=== PATIENT | male | born 1955 | race Caucasian/White ===

== ENCOUNTER → 2018-06-12 14:55 | Outpatient (CLI) | payer OTHER, SELFPAY ==
--- NOTE | 2018-06-12 14:58 | DI.MRI.S_ITS ---
PROCEDURE: MR LUMBAR SPINE WO CON INDICATIONS: LUMBAR STENOSIS,LUMBAR REGION TECHNIQUE: Noncontrast sagittal T1 spin echo and T2 fast echo, sagittal STIR, axial T1 and T2 fast spin echo through the lumbar spine. In cases with scoliosis, additional coronal T2 fast spin echo may be performed. COMPARISON: None. FINDINGS: Image quality: Excellent. Alignment and Curvature: There is normal bony alignment. Bone Marrow: Marrow is of normal overall signal. No acute vertebral body compression fractures. Spinal Cord: Conus medullaris terminates at the T12 level. Visualized cord demonstrates normal signal and size. Paraspinous Soft Tissues: No paravertebral masses. L1-L2: Normal appearance. L2-L3: Mild disc bulge. Mild facet ligamentum flavum hypertrophy. No canal stenosis. No foraminal narrowing. L3-L4: Mild disc desiccation and height loss. Broad-based disc bulge. Mild facet ligamentum flavum hypertrophy. No canal stenosis. No foraminal stenosis. L4-L5: Severe disc desiccation and height loss. Reactive endplate changes. Moderate facet ligamentum flavum hypertrophy. Mild canal stenosis. Mild right and moderate left foraminal stenosis. L5-S1: Severe disc desiccation and height loss. No canal stenosis. Moderate bilateral foraminal stenosis. IMPRESSION: 1. This desiccation and height loss most severe at L4-5 and L5-S1. 2. Mild L4-L5 canal stenosis. No other canal stenosis of the lumbar spine. 3. Moderate left L4-L5 foraminal stenosis and moderate bilateral L5-S1 foraminal stenosis. Dictated by: Alie Payne M.D. on 06/12/2018 at 15:53 Approved by: Alie Payne M.D. on 06/12/2018 at 15:57
== END ==
PROVIDERS: Visit Provider Family Medicine
DX: M48.061 Spinal stenosis, lumbar region without neurogenic claudication (principal); M51.86 Other intervertebral disc disorders, lumbar region; M51.87 Other intervertebral disc disorders, lumbosacral region
CPT/HCPCS: 72148

== ENCOUNTER → 2018-08-14 17:37 | Outpatient (CLI) | payer OTHER, SELFPAY ==
--- NOTE | 2018-08-14 17:40 | DI.MRI.S_ITS ---
PROCEDURE: MR WRIST RT WO CON INDICATIONS: CRUSHING INJURY OF RIGHT HAND TECHNIQUE: Noncontrast coronal proton density fast spin echo and T2 fast spin echo with fat saturation; coronal 3-D gradient echo, axial T1 spin echo and T2 fast spin echo with fat saturation, sagittal T1 spin echo through the wrist. COMPARISON: [facility], CR, XR WRIST 3+ VIEWS RIGHT, 08/02/2018, 9:09. [facility] Outside Film, CT, CT HAND RIGHT WITHOUT CONTRAST, 06/23/2018, 9:11. FINDINGS: Image quality: Slightly degraded due to motion.. Bones and cartilage: The carpal bones are normally aligned. There is marrow edema involving fourth metacarpal shaft and fourth metacarpal head. No definite discrete fracture line is noted. Cortical irregularity involving dorsal aspect of second metacarpal base is seen, suspicious for a subacute to old fracture. No significant adjacent marrow edema is seen. No other fracture or dislocation is noted. Mild soft tissue swelling around fourth metacarpal shaft is seen. Intraosseous cysts are noted in proximal scaphoid. Small intraosseous cyst is also seen in capitate. No evidence for avascular necrosis. Overlying cartilage surfaces appear normal. Carpal ligaments: The scapholunate and lunotriquetral ligaments appear intact. In the absence of intra-articular contrast, the extrinsic carpal ligaments are not well identified. On sagittal images, the pisohamate ligament appears intact. Triangular fibrocartilage complex: The triangular fibrocartilage appears intact. The adjacent meniscal homolog appears normal in the absence of intra-articular contrast. The extensor carpi ulnaris tendon is normal in location and morphology. Tendons and soft tissues: The carpal tunnel structures appear normal, including the median nerve. The ulnar nerve appears normal within Guyon's canal. All six extensor tendon compartments demonstrate normal morphology, without pathologic tendon sheath fluid. No soft tissue ganglion cysts. IMPRESSION: 1. Mild marrow edema involving fourth metacarpal shaft and metacarpal head with surrounding soft tissue swelling. No definite fracture or dislocation is seen. Finding is suggestive of bony contusion and adjacent soft tissue contusion. 2. Cortical irregularity involving dorsal aspect of fourth metacarpal base, which was also noted on previous CT study and is suspicious for a subacute nondisplaced fracture in this area. Clinical correlation and followup is recommended. 3. Wrist tendons and ligaments are grossly intact. Triangular fibrocartilage complex is intact. Dictated by: Yogi Mcgee M.D. on 08/15/2018 at 13:50 Approved by: Yogi Mcgee M.D. on 08/15/2018 at 14:22
== END ==
PROVIDERS: Visit Provider Physician Assistant Surgical
DX: S67.21XA Crushing injury of right hand, initial encounter (principal); R60.9 Edema, unspecified
CPT/HCPCS: 73221

== ENCOUNTER 2019-01-28 12:33 | Emergency (ER) | payer OTHER, SELFPAY ==
[2019-01-28 12:46] VITALS: BP 132/81; PULSE 82; RESP 18; TEMP 36.8; O2SAT 98; BMI 24.2
[2019-01-28] MEDS: CYCLOBENZAPRINE 10 MG TABLET PO (13:22)
[2019-01-28] MEDS: predniSONE 20 MG TABLET 40 MG PO (13:22)
[2019-01-28] MEDS: KETOROLAC 60 MG/2 ML VIAL IM (13:22)
[2019-01-28 13:34] VITALS: BP 110/77; PULSE 58; RESP 16; O2SAT 99
--- NOTE | 2019-01-28 14:14 | DI.RAD.S_ITS ---
PROCEDURE: XR LUMBAR SPINE 2-3V INDICATIONS: Low back pain, hx of ruptured disc in L3-S1 TECHNIQUE: 3 views of the lumbar spine were acquired. COMPARISON: [facility], MR, MR LUMBAR SPINE WO CON, 06/12/2018, 15:04. FINDINGS: Bones: 5 [id number] vertebrae are present. There is a minimal retrolisthesis at L5-S1 which appears similar to the prior study. No vertebral body compression fractures. There is moderate to severe disc space narrowing at L4-L5 and L5-S1 with endplate sclerosis and osteophytosis. There is minimal disc space narrowing at L3-L4. Mild facet arthropathy also noted at L5-S1. Soft tissues: Overlying bowel gas pattern is normal. No suspicious soft tissue calcifications. IMPRESSION: 1. Degenerative changes in the lower lumbar spine including moderate to severe degenerative disc disease at L4-L5 and L5-S1. Mild facet arthropathy also noted at L5-S1. Dictated by: Mj Aguilera M.D. on 01/28/2019 at 13:59 Approved by: Mj Aguilera M.D. on 01/28/2019 at 14:02
--- NOTE | 2019-01-28 14:35 | ED.BACK ---
HPI - Back Pain/Injury <LIV Camara - Last Filed: 01/29/19 00:25> General Chief Complaint: Back Pain/Injury Stated Complaint: severe low back pain x2 days Time Seen by Provider: 01/28/19 12:42 Source: patient Limitations: no limitations History of Present Illness HPI Narrative: This is a pleasant 64-year-old gentleman, nonsmoker, who presents with significant other with chief complain of nontraumatic low back pain since Tuesday. Patient reports he had trimmed trees and work in the yard on Tuesday without much trouble. He noticed sudden onset of severe low back pain when he stood up from a chair and again he felt another episode of severe back pain when he was brushing his teeth. Patient reports any movements that make his body on even causes severe pain which radiates down to bilateral thigh. Patient reports he has a history of disc rupture from L4-S1 in 1991 which was managed with conservative therapy. Patient denies any urinary symptoms, saddle anesthesia, incontinence for bladder or bowel, rash on his back, fever/chills, nausea or vomiting. Patient has been taking Aleve, Tylenol, old prescription of oxycodone, warm pack but pain has been managed well at home. He has been taking very slow to move and has been resting most of yesterday. Related Data Previous Rx's Medication Instructions Recorded diazepam [Valium] 5 - 10 mg PO BID-TID PRN #14 tab 01/28/19 lidocaine 1 patch TOP DAILY #15 each 01/28/19 prednisone 40 mg PO DAILY 4 Days #8 tab 01/28/19 Allergies Allergy/AdvReac Type Severity Reaction Status Date / Time No Known Drug Allergies Allergy Verified 01/28/19 12:48 Review of Systems <LIV Camara - Last Filed: 01/29/19 00:25> Review of Systems ROS Unobtainable: All systems reviewed & are unremarkable except as noted in HPI and below PFSH <LIV Camara - Last Filed: 01/29/19 00:25> Medical History Back pain (Acute) Surgical History History of knee surgery (Acute) History of shoulder surgery (Acute) Social History Smoking Status: Never smoker Social History Smoking Status: Never smoker Exam <LIV Camara - Last Filed: 01/29/19 00:25> Narrative Exam Narrative: General appearance: well developed, well nourished, in no acute distress. Head: normocephalic, atraumatic, no scalp lesions, non-tender. Eye: pupil equal, round. EOMI. Nose: nares patent. Oral: mucosa moist. Neck/Thyroid: neck supple, full range of motion, no visible masses. Skin: no suspicious rashes, lesions over visible areas. Warm and dry. Heart: no clubbing, no cyanosis, no edema. Lungs: Breathing even and unlabored. No stridor. No accessory muscles used. Chest: normal shape and expansion. Abdomen: non-obese, non-distended. Neurologic: alert and oriented. Cognitive exam, [employer] and PNS grossly intact on informal exam. Psych: good eye contact, normal affect. Initial Vital Signs Initial Vital Signs: Vital Signs Temperature 98.3 F 01/28/19 12:46 Pulse Rate 82 01/28/19 12:46 Respiratory Rate 18 01/28/19 12:46 Blood Pressure 132/81 01/28/19 12:46 Pulse Oximetry 98 01/28/19 12:46 Back/Spine/Pelvis Back: normal to inspection, back tenderness, No CVA tenderness and No erythema Thoracic/Lumbar Spine: thoracic and lumbar spine normal to inspection, straight leg raise negative bilaterally, bend over test abnormal, pain with thoraco-lumbar ROM, paraspinal tenderness and tilt present <Yamilex Abreu DO - Last Filed: 01/29/19 07:47> Initial Vital Signs Initial Vital Signs: Vital Signs Temperature 98.3 F 01/28/19 12:46 Pulse Rate 82 01/28/19 12:46 Respiratory Rate 18 01/28/19 12:46 Blood Pressure 132/81 01/28/19 12:46 Pulse Oximetry 98 01/28/19 12:46 Course <LIV Camara - Last Filed: 01/29/19 00:25> Orders Ordered: Discontinued Medications Cyclobenzaprine HCl (Flexeril) 10 mg PO NOW ONE Stop: 01/28/19 13:03 Last Admin: 01/28/19 13:22 Dose: 10 mg Documented by: ALEXY Ketorolac Tromethamine (Toradol) 60 mg IM NOW ONE Stop: 01/28/19 13:03 Last Admin: 01/28/19 13:22 Dose: 60 mg Documented by: ALEXY Lidocaine (Lidoderm) 1 each TOP NOW ONE Stop: 01/28/19 14:35 Last Admin: 01/28/19 15:15 Dose: 1 each Documented by: YULI Prednisone (Deltasone) 40 mg PO NOW ONE Stop: 01/28/19 13:03 Last Admin: 01/28/19 13:22 Dose: 40 mg Documented by: ALEXY Vital Signs Vital signs: Vital Signs - 8 hr 01/28/19 12:46 01/28/19 13:34 Temperature 98.3 F Pulse Rate 82 58 L Respiratory Rate 18 16 Blood Pressure 132/81 Blood Pressure [Right Arm] 110/77 Pulse Oximetry 98 99 <Yamilex Abreu DO - Last Filed: 01/29/19 07:47> Orders Ordered: Discontinued Medications Cyclobenzaprine HCl (Flexeril) 10 mg PO NOW ONE Stop: 01/28/19 13:03 Last Admin: 01/28/19 13:22 Dose: 10 mg Documented by: ALEXY Ketorolac Tromethamine (Toradol) 60 mg IM NOW ONE Stop: 01/28/19 13:03 Last Admin: 01/28/19 13:22 Dose: 60 mg Documented by: ALEXY Lidocaine (Lidoderm) 1 each TOP NOW ONE Stop: 01/28/19 14:35 Last Admin: 01/28/19 15:15 Dose: 1 each Documented by: YULI Prednisone (Deltasone) 40 mg PO NOW ONE Stop: 01/28/19 13:03 Last Admin: 01/28/19 13:22 Dose: 40 mg Documented by: ALEXY Vital Signs Vital signs: Vital Signs - 8 hr 01/28/19 12:46 01/28/19 13:34 Temperature 98.3 F Pulse Rate 82 58 L Respiratory Rate 18 16 Blood Pressure 132/81 Blood Pressure [Right Arm] 110/77 Pulse Oximetry 98 99 MDM - Back Pain/Injury <LIV Camara - Last Filed: 01/29/19 00:25> Differential Diagnosis Differential diagnosis: Likely lumbar radiculopathy, sciatica, strain of lumbar region, thoracic back pain and other (Lumbar pain) Medical Records Attestation: I reviewed the patient's medical records. Lab Data Labs: Urine Dip Bedside Urine Glucose Negative Bedside Urine Bilirubin - Negative Bedside Urine Ketone - Negative Urine Specific [place] 1.020 Bedside Urine Occult Blood - Negative Bedside Urine pH 6.0 Bedside Urine Protein +/- 15 Bedside Urine Urobilinogen +/- 1mg Bedside Urine Nitrite - Negative Bedside Urine Leukocytes - Negative Esterase Imaging Data XR-Lumbar: Radiologist's impression: [address] [address] XRay Report Signed Patient: Vinicio Vega WMR#: [id number] : 6Acct:[id number] Age/Sex: 64 / MDate of Service: 01/28/19 Loc: ED Accession Number: [id number] Procedure: XR lumbar spine 2-3V Ordering Provider: Santiago Sagastume PROCEDURE: XR LUMBAR SPINE 2-3V INDICATIONS: Low back pain, hx of ruptured disc in L3-S1 TECHNIQUE: 3 views of the lumbar spine were acquired. COMPARISON: [facility], MR, MR LUMBAR SPINE WO CON, 06/12/2018, 15:04. FINDINGS: Bones: 5 [id number] vertebrae are present. There is a minimal retrolisthesis at L5-S1 which appears similar to the prior study. No vertebral body compression fractures. There is moderate to severe disc space narrowing at L4-L5 and L5-S1 with endplate sclerosis and osteophytosis. There is minimal disc space narrowing at L3-L4. Mild facet arthropathy also noted at L5-S1. Soft tissues: Overlying bowel gas pattern is normal. No suspicious soft tissue calcifications. IMPRESSION: 1. Degenerative changes in the lower lumbar spine including moderate to severe degenerative disc disease at L4-L5 and L5-S1. Mild facet arthropathy also noted at L5-S1. Dictated by: Mj Aguilera M.D. on 01/28/2019 at 13:59 Approved by: Mj Aguilera M.D. on 01/28/2019 at 14:02 [facility] Narrative Medical decision making narrative: This is a 64-year-old gentleman who presents to ED with 3 days of nontraumatic severe low back pain radiating to bilateral anterior thigh after he had done yard working and tree trimming most of the day. Patient does not have constitutional symptoms or rash on his back. Urine did not appears to be infected or showed blood to be considered as kidney stone. The patient denied saddle anesthesia, incontinence problem, or urinary symptoms. Patient has history of L4-5 disc rupture with 75% nerve loss on right side of lower leg and has been treated with conservative therapy. Patient find even little movements causes severe pain. Patient was treated with multiple medications for his pain with minimal improvement and patient was evaluated several times. Lumbar x-ray was obtained without acute findings. Patient was able to ambulate and slow and stable gait to bathroom. Patient advised to rest his back and several Rx have provided for home use and to use warm/cool pack as needed. Strict return precautions were discussed with the patient and advised to follow with his primary care physician next week. No further questions were expressed and patient and spouse agree with treatment plan. <Yamilex Abreu, DO - Last Filed: 01/29/19 07:47> Lab Data Labs: Urine Dip Bedside Urine Glucose Negative Bedside Urine Bilirubin - Negative Bedside Urine Ketone - Negative Urine Specific [place] 1.020 Bedside Urine Occult Blood - Negative Bedside Urine pH 6.0 Bedside Urine Protein +/- 15 Bedside Urine Urobilinogen +/- 1mg Bedside Urine Nitrite - Negative Bedside Urine Leukocytes - Negative Esterase Discharge Plan Departure Patient Disposition: Home Clinical Impression: Acute low back pain with bilateral sciatica Qualifiers: Back pain laterality: bilateral Qualified Code(s): M54.42 - Lumbago with sciatica, left side Discharge Date/Time: 01/28/19 16:32 Instructions: DI for Low Back Pain Activity Restrictions/Additional Instructions: You have been diagnosed with [low back pain with sciatica to bilateral thighs. Today does not show compression fractures. There is moderate severe disc space narrowing in L4-L5 and minimum disc space narrowing at L3-L4 along degenerative disc disease. Your urine does not show infection or blood tests indicating kidney stone]. What to do: *Take your medications as directed. Valium is muscle relaxant and this causes drowsiness. Please do not drive, drink alcohol, or operate heavy equipments. Lidocaine stays on for 12 hours and off for 12 hours and helps with back pain. Prednisone is once a day for next 4 days to decrease back inflammation. This can cause increase in blood sugar, stomach irritation, sleep difficulty. Please continue to take Tylenol and or Motrin/Aleve products around the clock. You can take Tylenol upto 4000 mg/24 hr period. Please take food with prednisone and Aleve. You can continue to take narcotic medication you have sporadically for severe pain. Please rest your back for acute pain, you can use warm/cool pack on her back as well. *Follow up with your primary care provider in 2-3 days, call for an appointment. Let them know you were seen in the ED and that we asked you to be seen in follow up. *Return to ED if you have any new, worsening, or concerning symptoms, such as [chest pain, breathing difficulty, unable to tolerate fluids, weakness to bilateral legs, numbness to groin, bladder/stool incontinence, rash, or any acute concerns]. Prescriptions: New diazepam [Valium] 5 mg tablet 5 - 10 mg PO BID-TID PRN (Reason: muscle spasm) Qty: 14 RF: 0 lidocaine 5 % adhesive patch,medicated 1 patch TOP DAILY Qty: 15 RF: 0 prednisone 20 mg tablet 40 mg PO DAILY 4 Days Qty: 8 RF: 0 Referrals: Sagrario Vargas DO [Primary Care Provider] -
[2019-01-28 14:40] VITALS: BP 126/63; PULSE 58; RESP 14; O2SAT 99
[2019-01-28] MEDS: LIDOCAINE PATCH 1 EACH ADH..PATCH TOP (15:15)
[2019-01-28 16:07] VITALS: BP 95/38; PULSE 53; O2SAT 99
== END 2019-01-28 16:32 | disposition home or self-care (01) ==
PROVIDERS: Emergency Provider Nurse Practitioner Family; PCP Family Medicine
DX: M54.42 Lumbago with sciatica, left side (principal)
CPT/HCPCS: 72100; 81003; 96372; 99283; 99284; J1885

== ENCOUNTER → 2019-02-14 06:46 | Outpatient (CLI) | payer OTHER, SELFPAY ==
--- NOTE | 2019-02-14 | DI.MRI.S_ITS ---
PROCEDURE: MR LUMBAR SPINE WO CON INDICATIONS: Lumbago with sciatica, unspecified side TECHNIQUE: Noncontrast sagittal T1 spin echo and T2 fast echo, sagittal STIR, axial T1 and T2 fast spin echo through the lumbar spine. In cases with scoliosis, additional coronal T2 fast spin echo may be performed. COMPARISON: [facility], CR, XR LUMBAR SPINE 2-3V, 01/28/2019, 14:42. FINDINGS: Image quality: Excellent. Alignment and Curvature: There is normal bony alignment. Bone Marrow: Reactive endplate change is noted adjacent to the L4-L5 and L5-S1 discs. No acute vertebral body compression fractures. Spinal Cord: Conus medullaris terminates at the L1 level. Visualized cord demonstrates normal signal and size. Paraspinous Soft Tissues: No paravertebral masses. L1-L2: Normal appearance. L2-L3: Normal appearance. L3-L4: Loss of disc signal. Mild diffuse disc bulge. Small central/left central disc protrusion. Mild narrowing of the central canal. Mild bilateral neural foraminal narrowing. No neural compression. L4-L5: Loss of disc signal and height. Mild to moderate diffuse disc bulge. Mild bilateral facet hypertrophy. Mild ligamentum flavum hypertrophy. Mild to moderate narrowing of the central canal. Moderate right and severe left neural foraminal narrowing with compression of the exiting left L4 nerve root. L5-S1: Loss of disc signal and height. Mild, diffuse disc bulge. Mild bilateral facet hypertrophy. No central stenosis. Moderate bilateral neural foraminal narrowing. No neural compression. IMPRESSION: 1. Multilevel degenerative disc disease. 2. Multilevel facet arthropathy. 3. Mild to moderate L4-L5 central canal narrowing. Mild L3-L4 central canal narrowing. 4. Moderate right and severe left L4-L5 neuroforaminal narrowing. Moderate bilateral L5-S1 neural foraminal narrowing. Mild bilateral L3-L4 neural foraminal narrowing. 5. Compression of the exiting left L4 nerve root secondary to left L4-L5 neural foraminal narrowing. Dictated by: Christina Martínez MD, PhD on 02/14/2019 at 13:03 Approved by: Christina Martínez MD, PhD on 02/14/2019 at 13:08
== END ==
PROVIDERS: PCP Family Medicine; Visit Provider Family Medicine
DX: M51.16 Intervertebral disc disorders with radiculopathy, lumbar region (principal); M51.17 Intervertebral disc disorders with radiculopathy, lumbosacral region; M47.816 Spondylosis without myelopathy or radiculopathy, lumbar region; M47.817 Spondylosis without myelopathy or radiculopathy, lumbosacral region; M48.061 Spinal stenosis, lumbar region without neurogenic claudication; M48.07 Spinal stenosis, lumbosacral region
CPT/HCPCS: 72148

== ENCOUNTER 2019-06-22 13:00 | Outpatient (RCR) | payer OTHER, SELFPAY ==
--- NOTE | 2019-05-31 16:21 | PT.OIE ---
Current Diagnoses Bunion of right foot (05/31/19) Unspecified acquired deformity of unspecified lower leg (05/31/19) Unspecified injury of right foot, initial encounter (05/31/19) Past Medical History (Last Reviewed 01/28/19 @ 14:50 by LIV Camara) Back pain (Acute) Past Surgical History (Last Reviewed 01/28/19 @ 14:50 by LIV Camara) History of knee surgery (Acute) History of shoulder surgery (Acute) Visit Care Team Role Provider Type Sagrario Vargas DO Attending Provider Non-Staff Primary Care Provider Specialty: Medical Address: [address] [place] [address], [facility] Email: Physical Therapy Initial Evaluation PT-OP-A Visit Information Start: 05/31/19 08:15 Freq: Status: Active Protocol: Document 05/31/19 11:15 HH (Rec: 05/31/19 12:21 [email or web address]) Out-Patient Physical Therapy Visit Information Visit Information Visit Type Initial Evaluation Visit Start Time 11:15 Visit Stop Time 12:05 Total Visit Minutes 50 Visit Number 05/25 Number of PODIATRIC SURGEON Visits 0 Evaluation Information Evaluation Date 05/31/19 PT-OP-B Current Condition Start: 05/31/19 08:15 Freq: Status: Active Protocol: Document 05/31/19 11:15 HH (Rec: 05/31/19 12:21 [email or web address]) Current Condition History of Current Condition Onset Date 03/27/19 Current Complaints L foot and big toe pain, difficulty in walking and decreased balance. History of Current Condition Pt is a 64 yo male 8 weeks status post arthodesis first tarsometatarsal joint at R foot; modified Child bunionectomy R foot; Osteotomy at 2nd and 3rd metatarsal; Plantar plate repair second metarsal phalangeal joint and hammertoe procedure, which was done at [facility] on Mar 27, 2019. Rehab protocol includes gentle progressive ROM and strengthening program; modalities to reduce inflammation. Pt is WBAT now and no longer need to wear boot since May 09, 2019. His surgeon also told him not to perform any impactful activities until 12 weeks postop. Pt reports limitation with foot and big toe mobility at this point and limits his walking ability up to 1 mile/day only. 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 Pt wants to be able to walk 500 miles this / next summer. Pt also reports his nerve conduction test on RLE is only 75% due to herniated disc which possibly caused his limited sensation to R LE. Pt has a long history of bunion and he noticed he tends to push off through his medial side of the big toe prior to surgery. In addition, pt states he also has radiating L hip pain to posterior thigh after proloned sitting or sitting at a low level chair, but tends to relieve with movement or reduced seated hip flexion angle. Prior Treatments and Tests See post op x-ray in chart. Future Testing and Treatments Planned Next appt with surgeon 06/05/19 Treatment Goals Patient/Caregiver Goals 1. Able to improve his R big toe and ankle mobility 2. able to improve single leg balance 3. able to normalize his gait pattern 4. Able to jog 5 miles + walk 3-5 miles a day PT-OP-C Subjective Start: 05/31/19 08:15 Freq: Status: Active Protocol: Document 05/31/19 11:15 HH (Rec: 05/31/19 16:21 [email or web address]) OP-PT Subjective Patient Comments Patient Comments im frustrated with my current activity level since i cant walk as much as before. Patient Questionnaires Foot & Ankle Ability Measure- ADL and Sports FAAM-ADL Score 74 FAAM-ADL Impairment 1 to 19% Impaired (Score 67-83 ) FAAM-Sport Score 15 FAAM-Sport Impairment 40 to 59% Impaired (Score 12- 18) Lower Extremity Functional Scale LEFS Score 65 LEFS Impairment 1 to 19% Impaired (Score 63-79 ) PT-OP-G Mobility & Gait Start: 05/31/19 08:15 Freq: Status: Active Protocol: Document 05/31/19 11:15 HH (Rec: 05/31/19 16:21 [email or web address]) OP Gait Assessment Gait Gait Assistance Required: Independent Gait Deviations General Gait Pattern Antalgic,Decreased Stride Length,Decreased Feet Clearance Factors Limiting Gait Function Factors Limiting Gait Function Limited Range of Motion,Pain, Poor Balance Comments Gait Comments R foot turned out during gait with limited forefoot push off at preswing. Pt has limited R heel strike and toe extension for initial contact and terminal stance PT-OP-J Posture/Palpation/Skin Start: 05/31/19 08:15 Freq: Status: Active Protocol: Document 05/31/19 11:15 HH (Rec: 05/31/19 16:21 [email or web address]) Posture Evaluation Position Standing Evaluation View Anterior Ankle/Foot Posture (R) Pronated,(R) Forefoot Abducted Foot Arch (L) Medium Arch,(R) Low Arch PT-OP-K Range of Motion Start: 05/31/19 08:15 Freq: Status: Active Protocol: Document 05/31/19 11:15 HH (Rec: 05/31/19 16:21 [email or web address]) Lumbar Spine Range of Motion Lumbar Spine Active Percentage Comments able to reach metatarsal for toe touch test Ankle and Foot Goniometric Range of Motion Ankle and Foot Right Active Ankle/Foot ROM WFL No Testing Position Supine Dorsiflexion with Knee Extended 0 Plantarflexion 55 Inversion 15 Eversion 8 Left Active Ankle/Foot ROM WFL Yes Testing Position Supine Dorsiflexion with Knee Extended 5 Plantarflexion 75 Inversion 20 Eversion 14 Toe Range of Motion Toe Right Great Toe Toe ROM WFL No MTP Flexion Active (degrees) 5 MTP Extension Active (degrees) 15 Left Great Toe Toe ROM WFL Yes MTP Flexion Active (degrees) 17 MTP Extension Active (degrees) 55 PT-OP-M Strength Start: 05/31/19 08:15 Freq: Status: Active Protocol: Document 05/31/19 11:15 HH (Rec: 05/31/19 16:21 [email or web address]) Knee Strength Knee Manual Muscle Testing Right Flexion (S2) 5 Normal Extension (L3) 5 Normal Left Flexion (S2) 5 Normal Extension (L3) 5 Normal Ankle/Foot Strength Ankle and Foot Manual Muscle Testing Right Dorsiflexion (L4) 4- Good- Plantarflexion (S1) 4 Good Inversion 4- Good- Eversion (S1) 4- Good- Reason Not Measured Pain Left Dorsiflexion (L4) 5 Normal Plantarflexion (S1) 5 Normal Inversion 5 Normal Eversion (S1) 5 Normal Toe Strength Toe Manual Muscle Testing Right Great Toe Flexion 3+ Fair+ Extension 3+ Fair+ Reason Not Measured Pain Left Great Toe Flexion 5 Normal Extension 5 Normal PT-OP-Q Treatments Start: 05/31/19 08:15 Freq: Status: Active Protocol: Document 05/31/19 11:15 HH (Rec: 05/31/19 16:21 HH [email or web address]) Therapeutic Exercises Supine Exercises calf stretch Supine Exercise Name with belt to assist Side right Comments for home stretch calf release Supine Exercise Name with tennis ball/ use of rolling pin Side right Comments for home self massage Sitting Exercises short foot ex Side right Equipment Used towel Comments for HEP Manual Therapy Treatment Soft Tissue Mobilization scar mob Mobilization Type Cross-Friction Intensity/Depth Superficial Body Position Sitting Comments educated pt to cross friction self scar mob around incision site with minimal pressure. PT-OP-T Assessment and Plan Start: 05/31/19 08:15 Freq: Status: Active Protocol: Document 05/31/19 11:15 HH (Rec: 05/31/19 16:21 HH [email or web address]) Physical Therapy Assessment Goals gait Impairment Pt amb with a R foot shirt turner Education Technician Goal (LTG) Pt will increase his overall R foot ROM by 10 degrees to improve his gait mechanics with proper heel strike and toes off on R side. LTG Duration 12 weeks Return to sports Impairment unable to jog/ hike at this point Short Term Goal (STG) pt will be able to light jog 2 miles without discomfort of R foot STG Duration 6 weeks Usp Goal (LTG) Pt will be able to light jog 3 miles a day (speed= 4MPH) without discomfrot of R foot. LTG Duration 12 weeks Activity tolerance Impairment Pt unable to paulie >1 mile walk /day at this point Short Term Goal (STG) Pt will be able to amb 1 mile/ day without any discomfort at R foot STG Duration 6 weeks Usp Goal (LTG) Pt will be able to amb 3-5 miles/day without any discomfort at R foot. LTG Duration 12 weeks LEFS Impairment pt scores 65 for LEFS Short Term Goal (STG) Pt will score >70 on LEFS to improve his quality of life STG Duration 6 weeks Education Technician Goal (LTG) Pt will score >75 on LEFS to improve his quality of life in order to return to his daily joggin routine. LTG Duration 12 weeks Assessment Summary Assessment Pt is a 64yo male 8 weeks s/p arthrodesis first tarsometatarsal joint right foot; modified Child bunionectomy right foot; Osteotomy at second and third metatarsal and plantar plate repair second metatarsal phalangeal joint and hammertoe procedure. Pt still has edema at both dorsal and plantar aspect of the forefoot, along with limited 1st ray and big toe joint mobility. Pt currently amb with R foot shirt turner and lack of heel strike and toe push off at preswing d /t limited mobility and pain. Educated pt to use tennis ball / rolling ball to improve R calf soft tissue mobility and added short foot ex to improve motor control. 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 Pt will be a good candidate for skilled therapy to improve his foot and toe mobility, strength and gait mechanics to prevent further injury / reoccurance of bunion . Physical Therapy Plan Frequency and Duration Frequency of Treatment 2x/Week Duration of Treatment 12 weeks Plan of Care Start Date 05/31/19 Plan of Care End Date 08/29/19 Therapeutic Interventions Therapeutic Interventions Balance Training,Coordination Training,Gait Training,Home Exercise Program,Joint Mobilizations,Manual Therapy, Neuromuscular Re-education, Patient/Caregiver Education, Self-Care/Home Management,Soft Tissue Mobilization,Taping, Therapeutic Activities, Therapeutic Exercises Modalities Cold Pack/Ice Massage,Electric Stimulation,Hot Packs, Infrared Therapy,Ultrasound Next Visit Focus/Plan Next Note Type Treatment Note Next Visit Plan measure edema Single leg balance start manual therapy for swelling managment PROM, calf stretch and STM short foot ex gait training with heel strike
--- NOTE | 2019-05-31 16:22 | PT.OPPOC ---
Physical, Occupational & Speech Therapy At [facility] Current Diagnoses Bunion of right foot (05/31/19) Unspecified acquired deformity of unspecified lower leg (05/31/19) Unspecified injury of right foot, initial encounter (05/31/19) Visit Care Team Role Provider Type Sagrario Vargas DO Attending Provider Non-Staff Primary Care Provider Specialty: Medical Address: [address] [place] [address], [facility] Email: Plan Of Care PT-OP-T Assessment and Plan Start: 05/31/19 08:15 Freq: Status: Active Protocol: Document 05/31/19 11:15 HH (Rec: 05/31/19 16:21 HH [email or web address]) Physical Therapy Assessment Goals gait Impairment Pt amb with a R foot die turner Billet Worker Goal (LTG) Pt will increase his overall R foot ROM by 10 degrees to improve his gait mechanics with proper heel strike and toes off on R side. LTG Duration 12 weeks Return to sports Impairment unable to jog/ hike at this point Short Term Goal (STG) pt will be able to light jog 2 miles without discomfort of R foot STG Duration 6 weeks Billet Worker Goal (LTG) Pt will be able to light jog 3 miles a day (speed= 4MPH) without discomfrot of R foot. LTG Duration 12 weeks Activity tolerance Impairment Pt unable to paulie >1 mile walk /day at this point Short Term Goal (STG) Pt will be able to amb 1 mile/ day without any discomfort at R foot STG Duration 6 weeks Half-Way Goal (LTG) Pt will be able to amb 3-5 miles/day without any discomfort at R foot. LTG Duration 12 weeks LEFS Impairment pt scores 65 for LEFS Short Term Goal (STG) Pt will score >70 on LEFS to improve his quality of life STG Duration 6 weeks Half-Way Goal (LTG) Pt will score >75 on LEFS to improve his quality of life in order to return to his daily joggin routine. LTG Duration 12 weeks Assessment Summary Assessment Pt is a 64yo male 8 weeks s/p arthrodesis first tarsometatarsal joint right foot; modified Child bunionectomy right foot; Osteotomy at second and third metatarsal and plantar plate repair second metatarsal phalangeal joint and hammertoe procedure. Pt still has edema at both dorsal and plantar aspect of the forefoot, along with limited 1st ray and big toe joint mobility. Pt currently amb with R foot die turner and lack of heel strike and toe push off at preswing d /t limited mobility at pain. Educated pt to use tennis ball / rolling ball to improve R calf soft tissue mobility and added short foot ex to improve motor control. 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 Pt will be a good candidate for skilled therapy to improve his foot and toe mobility, strength and gait mechanics to prevent further injury / reoccurance of bunion . Physical Therapy Plan Frequency and Duration Frequency of Treatment 2x/Week Duration of Treatment 12 weeks Plan of Care Start Date 05/31/19 Plan of Care End Date 08/29/19 Therapeutic Interventions Therapeutic Interventions Balance Training,Coordination Training,Gait Training,Home Exercise Program,Joint Mobilizations,Manual Therapy, Neuromuscular Re-education, Patient/Caregiver Education, Self-Care/Home Management,Soft Tissue Mobilization,Taping, Therapeutic Activities, Therapeutic Exercises Modalities Cold Pack/Ice Massage,Electric Stimulation,Hot Packs, Infrared Therapy,Ultrasound Next Visit Focus/Plan Next Note Type Treatment Note Next Visit Plan measure edema Single leg balance start manual therapy for swelling managment PROM, calf stretch and STM short foot ex gait training with heel strike Plan of Care Dates Plan of Care Start Date 05/31/19 Plan of Care End Date 08/29/19 Electronically Signed by: Juan Howe PT 05/31/19 1523 Please Sign and Return: I have reviewed this Plan of Care and certify that the skilled therapy services above are required to meet the patient?s needs. Physician Signature Date Printed Name and Credentials Clinical Instructor Signature Printed Name and Credentials
--- NOTE | 2019-06-05 17:51 | PT.OTN ---
Current Diagnoses Bunion of right foot (06/05/19) Unspecified acquired deformity of unspecified lower leg (06/05/19) Unspecified injury of right foot, initial encounter (06/05/19) Physical Therapy Treatment Note PT-OP-A Visit Information Start: 05/31/19 08:15 Freq: Status: Active Protocol: Document 06/05/19 13:48 HH (Rec: 06/05/19 17:50 HH [id number]) Out-Patient Physical Therapy Visit Information Visit Information Visit Type Treatment Note Visit Start Time 13:48 Visit Stop Time 14:30 Total Visit Minutes 42 Visit Number 06/25 PT-OP-B Current Condition Start: 05/31/19 08:15 Freq: Status: Active Protocol: Document 05/31/19 11:15 HH (Rec: 05/31/19 12:21 HH [email or web address]) Current Condition History of Current Condition Onset Date 03/27/19 Current Complaints L foot and big toe pain, difficulty in walking and decreased balance. History of Current Condition Pt is a 64 yo male 8 weeks status post arthodesis first tarsometatarsal joint at R foot; modified Child bunionectomy R foot; Osteotomy at 2nd and 3rd metatarsal; Plantar plate repair second metarsal phalangeal joint and hammertoe procedure, which was done at [facility] on Mar 27, 2019. Rehab protocol includes gentle progressive ROM and strengthening program; modalities to reduce inflammation. Pt is WBAT now and no longer need to wear boot since May 09, 2019. His surgeon also told him not to perform any impactful activities until 12 weeks postop. Pt reports limitation with foot and big toe mobility at this point and limits his walking ability up to 1 mile/day only. 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 Pt wants to be able to walk 500 miles this / next summer. Pt also reports his nerve conduction test on RLE is only 75% due to herniated disc which possibly caused his limited sensation to R LE. Pt has a long history of bunion and he noticed he tends to push off through his medial side of the big toe prior to surgery. In addition, pt states he also has radiating L hip pain to posterior thigh after proloned sitting or sitting at a low level chair, but tends to relieve with movement or reduced seated hip flexion angle. Prior Treatments and Tests See post op x-ray in chart. Future Testing and Treatments Planned Next appt with surgeon 06/05/19 Treatment Goals Patient/Caregiver Goals 1. Able to improve his R big toe and ankle mobility 2. able to improve single leg balance 3. able to normalize his gait pattern 4. Able to jog 5 miles + walk 3-5 miles a day PT-OP-C Subjective Start: 05/31/19 08:15 Freq: Status: Active Protocol: Document 06/05/19 13:48 HH (Rec: 06/05/19 17:50 HH [id number]) OP-PT Subjective Patient Comments Patient Comments I did 1.6 miles walk today but i do feel my foot got tired and sosre. I am very aware what i am capable of. Patient Reported Progress Same PT-OP-G Mobility & Gait Start: 05/31/19 08:15 Freq: Status: Active Protocol: Document 05/31/19 11:15 HH (Rec: 05/31/19 16:21 [email or web address]) OP Gait Assessment Gait Gait Assistance Required: Independent Gait Deviations General Gait Pattern Antalgic,Decreased Stride Length,Decreased Feet Clearance Factors Limiting Gait Function Factors Limiting Gait Function Limited Range of Motion,Pain, Poor Balance Comments Gait Comments R foot turned out during gait with limited forefoot push off at preswing. Pt has limited R heel strike and toe extension for initial contact and terminal stance PT-OP-J Posture/Palpation/Skin Start: 05/31/19 08:15 Freq: Status: Active Protocol: Document 05/31/19 11:15 HH (Rec: 05/31/19 16:21 [email or web address]) Posture Evaluation Position Standing Evaluation View Anterior Ankle/Foot Posture (R) Pronated,(R) Forefoot Abducted Foot Arch (L) Medium Arch,(R) Low Arch PT-OP-K Range of Motion Start: 05/31/19 08:15 Freq: Status: Active Protocol: Document 05/31/19 11:15 HH (Rec: 05/31/19 16:21 [email or web address]) Lumbar Spine Range of Motion Lumbar Spine Active Percentage Comments able to reach metatarsal for toe touch test Ankle and Foot Goniometric Range of Motion Ankle and Foot Right Active Ankle/Foot ROM WFL No Testing Position Supine Dorsiflexion with Knee Extended 0 Plantarflexion 55 Inversion 15 Eversion 8 Left Active Ankle/Foot ROM WFL Yes Testing Position Supine Dorsiflexion with Knee Extended 5 Plantarflexion 75 Inversion 20 Eversion 14 Toe Range of Motion Toe Right Great Toe Toe ROM WFL No MTP Flexion Active (degrees) 5 MTP Extension Active (degrees) 15 Left Great Toe Toe ROM WFL Yes MTP Flexion Active (degrees) 17 MTP Extension Active (degrees) 55 PT-OP-M Strength Start: 05/31/19 08:15 Freq: Status: Active Protocol: Document 05/31/19 11:15 HH (Rec: 05/31/19 16:21 HH [email or web address]) Knee Strength Knee Manual Muscle Testing Right Flexion (S2) 5 Normal Extension (L3) 5 Normal Left Flexion (S2) 5 Normal Extension (L3) 5 Normal Ankle/Foot Strength Ankle and Foot Manual Muscle Testing Right Dorsiflexion (L4) 4- Good- Plantarflexion (S1) 4 Good Inversion 4- Good- Eversion (S1) 4- Good- Reason Not Measured Pain Left Dorsiflexion (L4) 5 Normal Plantarflexion (S1) 5 Normal Inversion 5 Normal Eversion (S1) 5 Normal Toe Strength Toe Manual Muscle Testing Right Great Toe Flexion 3+ Fair+ Extension 3+ Fair+ Reason Not Measured Pain Left Great Toe Flexion 5 Normal Extension 5 Normal PT-OP-Q Treatments Start: 05/31/19 08:15 Freq: Status: Active Protocol: Document 06/05/19 13:48 HH (Rec: 06/05/19 17:50 HH [id number]) Cardio Equipment Bicycle (Upright) Duration (Minutes) 7 Resistance 5 Therapeutic Exercises Supine Exercises supine bridge Supine Exercise Name on heels Comments for HEP calf stretch Supine Exercise Name with belt to assist Side right Comments for home stretch calf release Supine Exercise Name with tennis ball/ use of rolling pin Side right Comments for home self massage Sitting Exercises big toe flex and toes ext Sitting Exercise Name foot on the ground Side right Reps/Minutes 2 mins Comments big toe fl with 2nd to 5th for ext big toe ext Sitting Exercise Name foot on the ground Side right Reps/Minutes 2 mins Comments big toe ext with 2nd-5th on the floor short foot ex Side right Equipment Used towel Comments for HEP Manual Therapy Treatment Soft Tissue Mobilization Plantar fascia Mobilization Type Sustained Pressure,Trigger Point Release Intensity/Depth Superficial Body Position Supine Comments along with passive big toe ext scar mob Mobilization Type Cross-Friction Intensity/Depth Superficial Body Position Supine Comments educated pt to cross friction self scar mob around incision site with minimal pressure. Joint Mobilizations metatarsals Joint 1st-4th Direction inferior/ superior Grade II Body Position Supine Reps/Duration 4 mins big toe MTP Joint for extension and flexion Direction distraction, inferior glide Grade II Body Position Supine Reps/Duration 10 mins big toe DIP Joint for extension and flexion Direction distraction, inferior glide Grade II Body Position Supine Reps/Duration 8 mins PT-OP-T Assessment and Plan Start: 05/31/19 08:15 Freq: Status: Active Protocol: Document 06/05/19 13:48 HH (Rec: 06/05/19 17:50 HH [id number]) Physical Therapy Assessment Goals gait Impairment Pt amb with a R foot engine turner Group Home Goal (LTG) Pt will increase his overall R foot ROM by 10 degrees to improve his gait mechanics with proper heel strike and toes off on R side. LTG Duration 12 weeks Return to sports Impairment unable to jog/ hike at this point Short Term Goal (STG) pt will be able to light jog 2 miles without discomfort of R foot STG Duration 6 weeks Group Home Goal (LTG) Pt will be able to light jog 3 miles a day (speed= 4MPH) without discomfrot of R foot. LTG Duration 12 weeks Activity tolerance Impairment Pt unable to paulie >1 mile walk /day at this point Short Term Goal (STG) Pt will be able to amb 1 mile/ day without any discomfort at R foot STG Duration 6 weeks Claim Professional Goal (LTG) Pt will be able to amb 3-5 miles/day without any discomfort at R foot. LTG Duration 12 weeks LEFS Impairment pt scores 65 for LEFS Short Term Goal (STG) Pt will score >70 on LEFS to improve his quality of life STG Duration 6 weeks Claim Professional Goal (LTG) Pt will score >75 on LEFS to improve his quality of life in order to return to his daily joggin routine. LTG Duration 12 weeks Assessment Summary Assessment Pt is 9 weeks post op. Tx focused on manual therapy to improve metatarsal glide, MTP joint mob and dip joint mob. Educated pt to perform self STM on calf, joint mob, short foot ex, big toe AROM, supine bridge on heels.
--- NOTE | 2019-06-07 10:31 | PT.OTN ---
Current Diagnoses Bunion of right foot (06/07/19) Unspecified acquired deformity of unspecified lower leg (06/07/19) Unspecified injury of right foot, initial encounter (06/07/19) Physical Therapy Treatment Note PT-OP-A Visit Information Start: 05/31/19 08:15 Freq: Status: Active Protocol: Document 06/07/19 09:46 HH (Rec: 06/07/19 10:30 HH [id number]) Out-Patient Physical Therapy Visit Information Visit Information Visit Type Treatment Note Visit Start Time 09:46 Visit Stop Time 10:30 Total Visit Minutes 44 Visit Number 07/23 PT-OP-B Current Condition Start: 05/31/19 08:15 Freq: Status: Active Protocol: Document 05/31/19 11:15 HH (Rec: 05/31/19 12:21 HH [email or web address]) Current Condition History of Current Condition Onset Date 03/27/19 Current Complaints L foot and big toe pain, difficulty in walking and decreased balance. History of Current Condition Pt is a 64 yo male 8 weeks status post arthodesis first tarsometatarsal joint at R foot; modified Child bunionectomy R foot; Osteotomy at 2nd and 3rd metatarsal; Plantar plate repair second metarsal phalangeal joint and hammertoe procedure, which was done at [facility] on Mar 27, 2019. Rehab protocol includes gentle progressive ROM and strengthening program; modalities to reduce inflammation. Pt is WBAT now and no longer need to wear boot since May 09, 2019. His surgeon also told him not to perform any impactful activities until 12 weeks postop. Pt reports limitation with foot and big toe mobility at this point and limits his walking ability up to 1 mile/day only. 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 Pt wants to be able to walk 500 miles this / next summer. Pt also reports his nerve conduction test on RLE is only 75% due to herniated disc which possibly caused his limited sensation to R LE. Pt has a long history of bunion and he noticed he tends to push off through his medial side of the big toe prior to surgery. In addition, pt states he also has radiating L hip pain to posterior thigh after proloned sitting or sitting at a low level chair, but tends to relieve with movement or reduced seated hip flexion angle. Prior Treatments and Tests See post op x-ray in chart. Future Testing and Treatments Planned Next appt with surgeon 06/05/19 Treatment Goals Patient/Caregiver Goals 1. Able to improve his R big toe and ankle mobility 2. able to improve single leg balance 3. able to normalize his gait pattern 4. Able to jog 5 miles + walk 3-5 miles a day PT-OP-C Subjective Start: 05/31/19 08:15 Freq: Status: Active Protocol: Document 06/07/19 09:46 HH (Rec: 06/07/19 10:30 [id number]) OP-PT Subjective Patient Comments Patient Comments I got a little sore yesterday morning but my pain is only 1 -2/10. Patient Reported Progress Improving PT-OP-G Mobility & Gait Start: 05/31/19 08:15 Freq: Status: Active Protocol: Document 05/31/19 11:15 HH (Rec: 05/31/19 16:21 [email or web address]) OP Gait Assessment Gait Gait Assistance Required: Independent Gait Deviations General Gait Pattern Antalgic,Decreased Stride Length,Decreased Feet Clearance Factors Limiting Gait Function Factors Limiting Gait Function Limited Range of Motion,Pain, Poor Balance Comments Gait Comments R foot turned out during gait with limited forefoot push off at preswing. Pt has limited R heel strike and toe extension for initial contact and terminal stance PT-OP-J Posture/Palpation/Skin Start: 05/31/19 08:15 Freq: Status: Active Protocol: Document 05/31/19 11:15 HH (Rec: 05/31/19 16:21 [email or web address]) Posture Evaluation Position Standing Evaluation View Anterior Ankle/Foot Posture (R) Pronated,(R) Forefoot Abducted Foot Arch (L) Medium Arch,(R) Low Arch PT-OP-K Range of Motion Start: 05/31/19 08:15 Freq: Status: Active Protocol: Document 05/31/19 11:15 HH (Rec: 05/31/19 16:21 [email or web address]) Lumbar Spine Range of Motion Lumbar Spine Active Percentage Comments able to reach metatarsal for toe touch test Ankle and Foot Goniometric Range of Motion Ankle and Foot Right Active Ankle/Foot ROM WFL No Testing Position Supine Dorsiflexion with Knee Extended 0 Plantarflexion 55 Inversion 15 Eversion 8 Left Active Ankle/Foot ROM WFL Yes Testing Position Supine Dorsiflexion with Knee Extended 5 Plantarflexion 75 Inversion 20 Eversion 14 Toe Range of Motion Toe Right Great Toe Toe ROM WFL No MTP Flexion Active (degrees) 5 MTP Extension Active (degrees) 15 Left Great Toe Toe ROM WFL Yes MTP Flexion Active (degrees) 17 MTP Extension Active (degrees) 55 PT-OP-M Strength Start: 05/31/19 08:15 Freq: Status: Active Protocol: Document 05/31/19 11:15 HH (Rec: 05/31/19 16:21 HH [email or web address]) Knee Strength Knee Manual Muscle Testing Right Flexion (S2) 5 Normal Extension (L3) 5 Normal Left Flexion (S2) 5 Normal Extension (L3) 5 Normal Ankle/Foot Strength Ankle and Foot Manual Muscle Testing Right Dorsiflexion (L4) 4- Good- Plantarflexion (S1) 4 Good Inversion 4- Good- Eversion (S1) 4- Good- Reason Not Measured Pain Left Dorsiflexion (L4) 5 Normal Plantarflexion (S1) 5 Normal Inversion 5 Normal Eversion (S1) 5 Normal Toe Strength Toe Manual Muscle Testing Right Great Toe Flexion 3+ Fair+ Extension 3+ Fair+ Reason Not Measured Pain Left Great Toe Flexion 5 Normal Extension 5 Normal PT-OP-Q Treatments Start: 05/31/19 08:15 Freq: Status: Active Protocol: Document 06/07/19 09:46 HH (Rec: 06/07/19 10:30 HH [id number]) Therapeutic Exercises Sitting Exercises seated ankle strengthening Sitting Exercise Name with TB Side right Equipment Used level 3 band Comments inv, ev, df and pf big toe flex and toes ext Sitting Exercise Name foot on the ground Side right Reps/Minutes 2 mins Comments big toe fl with 2nd to 5th for ext big toe ext Sitting Exercise Name foot on the ground Side right Reps/Minutes 2 mins Comments big toe ext with 2nd-5th on the floor Standing Exercises single leg stance Standing Exercise Name focus on creating foot arch Side right Comments next to support for HEP Manual Therapy Treatment Soft Tissue Mobilization Plantar fascia Mobilization Type Sustained Pressure,Trigger Point Release Intensity/Depth Superficial Body Position Supine Comments along with passive big toe ext scar mob Mobilization Type Cross-Friction Intensity/Depth Superficial Body Position Supine Comments educated pt to cross friction self scar mob around incision site with minimal pressure. 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 LTG Duration 12 weeks Return to sports Impairment unable to jog/ hike at this point Short Term Goal (STG) pt will be able to light jog 2 miles without discomfort of R foot STG Duration 6 weeks Long-Term Goal (LTG) Pt will be able to light jog 3 miles a day (speed= 4MPH) without discomfrot of R foot. LTG Duration 12 weeks Activity tolerance Impairment Pt unable to paulie >1 mile walk /day at this point Short Term Goal (STG) Pt will be able to amb 1 mile/ day without any discomfort at R foot STG Duration 6 weeks Personal Financial Advisor Goal (LTG) Pt will be able to amb 3-5 miles/day without any discomfort at R foot. LTG Duration 12 weeks LEFS Impairment pt scores 65 for LEFS Short Term Goal (STG) Pt will score >70 on LEFS to improve his quality of life STG Duration 6 weeks Personal Financial Advisor Goal (LTG) Pt will score >75 on LEFS to improve his quality of life in order to return to his daily joggin routine. LTG Duration 12 weeks Assessment Summary Assessment Cont to focus on manual therapy. pt does have improved 2nd toe extension but limited flexion. Added SLS with foot arch and open chain ankle strengthening ex. pt has follow up surgeon on tuesday Physical Therapy Plan Next Visit Focus/Plan Next Note Type Treatment Note Next Visit Plan assess post tx tolerance Single leg balance start manual therapy for swelling managment PROM, calf stretch and STM short foot ex gait training with heel strike
--- NOTE | 2019-06-13 08:20 | PT.OTN ---
Current Diagnoses Bunion of right foot (06/13/19) Unspecified acquired deformity of unspecified lower leg (06/13/19) Unspecified injury of right foot, initial encounter (06/13/19) Physical Therapy Treatment Note PT-OP-A Visit Information Start: 05/31/19 08:15 Freq: Status: Active Protocol: Document 06/13/19 07:33 SP (Rec: 06/13/19 11:54 SP [id number]) Out-Patient Physical Therapy Visit Information Visit Information Visit Type Treatment Note Visit Start Time 07:33 Visit Stop Time 08:20 Total Visit Minutes 47 Visit Number 08/23 Number of DRYWALL APPLICATION SUPERVISOR Visits 1 PT-OP-B Current Condition Start: 05/31/19 08:15 Freq: Status: Active Protocol: Document 05/31/19 11:15 HH (Rec: 05/31/19 12:21 HH [email or web address]) Current Condition History of Current Condition Onset Date 03/27/19 Current Complaints L foot and big toe pain, difficulty in walking and decreased balance. History of Current Condition Pt is a 64 yo male 8 weeks status post arthodesis first tarsometatarsal joint at R foot; modified Child bunionectomy R foot; Osteotomy at 2nd and 3rd metatarsal; Plantar plate repair second metarsal phalangeal joint and hammertoe procedure, which was done at [facility] on Mar 27, 2019. Rehab protocol includes gentle progressive ROM and strengthening program; modalities to reduce inflammation. Pt is WBAT now and no longer need to wear boot since May 09, 2019. His surgeon also told him not to perform any impactful activities until 12 weeks postop. Pt reports limitation with foot and big toe mobility at this point and limits his walking ability up to 1 mile/day only. 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 Pt wants to be able to walk 500 miles this / next summer. Pt also reports his nerve conduction test on RLE is only 75% due to herniated disc which possibly caused his limited sensation to R LE. Pt has a long history of bunion and he noticed he tends to push off through his medial side of the big toe prior to surgery. In addition, pt states he also has radiating L hip pain to posterior thigh after proloned sitting or sitting at a low level chair, but tends to relieve with movement or reduced seated hip flexion angle. Prior Treatments and Tests See post op x-ray in chart. Future Testing and Treatments Planned Next appt with surgeon 06/05/19 Treatment Goals Patient/Caregiver Goals 1. Able to improve his R big toe and ankle mobility 2. able to improve single leg balance 3. able to normalize his gait pattern 4. Able to jog 5 miles + walk 3-5 miles a day PT-OP-C Subjective Start: 05/31/19 08:15 Freq: Status: Active Protocol: Document 06/13/19 07:33 SP (Rec: 06/13/19 11:54 SP [id number]) OP-PT Subjective Patient Comments Patient Comments Pt stated did followed up with his ortho Tamica Nazario yesterday and please with progress of motion, continue to work on MTP flexion and cautious of base of 1st MTP extension due to still seeing slight hairline fx. Also limit distance mileage walking during the day dont increase 5600 ft during the day wiht supportive, follow up July 22 to allow healing time. Patient Reported Progress Improving PT-OP-G Mobility & Gait Start: 05/31/19 08:15 Freq: Status: Active Protocol: Document 05/31/19 11:15 HH (Rec: 05/31/19 16:21 HH [email or web address]) OP Gait Assessment Gait Gait Assistance Required: Independent Gait Deviations General Gait Pattern Antalgic,Decreased Stride Length,Decreased Feet Clearance Factors Limiting Gait Function Factors Limiting Gait Function Limited Range of Motion,Pain, Poor Balance Comments Gait Comments R foot turned out during gait with limited forefoot push off at preswing. Pt has limited R heel strike and toe extension for initial contact and terminal stance PT-OP-J Posture/Palpation/Skin Start: 05/31/19 08:15 Freq: Status: Active Protocol: Document 05/31/19 11:15 HH (Rec: 05/31/19 16:21 HH [email or web address]) Posture Evaluation Position Standing Evaluation View Anterior Ankle/Foot Posture (R) Pronated,(R) Forefoot Abducted Foot Arch (L) Medium Arch,(R) Low Arch PT-OP-K Range of Motion Start: 05/31/19 08:15 Freq: Status: Active Protocol: Document 05/31/19 11:15 HH (Rec: 05/31/19 16:21 [email or web address]) Lumbar Spine Range of Motion Lumbar Spine Active Percentage Comments able to reach metatarsal for toe touch test Ankle and Foot Goniometric Range of Motion Ankle and Foot Right Active Ankle/Foot ROM WFL No Testing Position Supine Dorsiflexion with Knee Extended 0 Plantarflexion 55 Inversion 15 Eversion 8 Left Active Ankle/Foot ROM WFL Yes Testing Position Supine Dorsiflexion with Knee Extended 5 Plantarflexion 75 Inversion 20 Eversion 14 Toe Range of Motion Toe Right Great Toe Toe ROM WFL No MTP Flexion Active (degrees) 5 MTP Extension Active (degrees) 15 Left Great Toe Toe ROM WFL Yes MTP Flexion Active (degrees) 17 MTP Extension Active (degrees) 55 PT-OP-M Strength Start: 05/31/19 08:15 Freq: Status: Active Protocol: Document 05/31/19 11:15 (Rec: 05/31/19 16:21 [email or web address]) Knee Strength Knee Manual Muscle Testing Right Flexion (S2) 5 Normal Extension (L3) 5 Normal Left Flexion (S2) 5 Normal Extension (L3) 5 Normal Ankle/Foot Strength Ankle and Foot Manual Muscle Testing Right Dorsiflexion (L4) 4- Good- Plantarflexion (S1) 4 Good Inversion 4- Good- Eversion (S1) 4- Good- Reason Not Measured Pain Left Dorsiflexion (L4) 5 Normal Plantarflexion (S1) 5 Normal Inversion 5 Normal Eversion (S1) 5 Normal Toe Strength Toe Manual Muscle Testing Right Great Toe Flexion 3+ Fair+ Extension 3+ Fair+ Reason Not Measured Pain Left Great Toe Flexion 5 Normal Extension 5 Normal PT-OP-Q Treatments Start: 05/31/19 08:15 Freq: Status: Active Protocol: Document 06/13/19 07:33 SP (Rec: 06/13/19 11:54 SP [id number]) Therapeutic Exercises Supine Exercises ankle TB Supine Exercise Name PF, EV MTP ABD, arch lift Reps/Minutes x10 Standing Exercises band walk Reps/Minutes 10 ft x4 laps single leg stance Standing Exercise Name focus on creating foot arch Side right Resistance floor, 1st set, green foam 2nd set Reps/Minutes 30 x2 each LE Comments next to support for HEP Manual Therapy Treatment Soft Tissue Mobilization Plantar fascia Mobilization Type Sustained Pressure,Trigger Point Release Intensity/Depth Superficial Body Position Supine Comments along with passive big toe ext scar mob Mobilization Type Cross-Friction Intensity/Depth Superficial Body Position Supine Comments educated pt to cross friction self scar mob around incision site with minimal pressure. Joint Mobilizations metatarsals Joint 1st-4th Direction inferior/ superior Grade II Body Position Supine Reps/Duration 4 mins big toe DIP Joint for extension and flexion Direction distraction, inferior glide Grade II Body Position Supine Reps/Duration 8 mins PT-OP-T Assessment and Plan Start: 05/31/19 08:15 Freq: Status: Active Protocol: Document 06/13/19 07:33 SP (Rec: 06/13/19 11:54 SP [id number]) Physical Therapy Assessment Goals gait Impairment Pt amb with a R foot shank turner Mcc Goal (LTG) Pt will increase his overall R foot ROM by 10 degrees to improve his gait mechanics with proper heel strike and toes off on R side. LTG Duration 12 weeks Return to sports Impairment unable to jog/ hike at this point Short Term Goal (STG) pt will be able to light jog 2 miles without discomfort of R foot STG Duration 6 weeks Artificial Teeth Inspector Goal (LTG) Pt will be able to light jog 3 miles a day (speed= 4MPH) without discomfrot of R foot. LTG Duration 12 weeks Activity tolerance Impairment Pt unable to paulie >1 mile walk /day at this point Short Term Goal (STG) Pt will be able to amb 1 mile/ day without any discomfort at R foot STG Duration 6 weeks Mcc Goal (LTG) Pt will be able to amb 3-5 miles/day without any discomfort at R foot. LTG Duration 12 weeks LEFS Impairment pt scores 65 for LEFS Short Term Goal (STG) Pt will score >70 on LEFS to improve his quality of life STG Duration 6 weeks Mcc Goal (LTG) Pt will score >75 on LEFS to improve his quality of life in order to return to his daily joggin routine. LTG Duration 12 weeks Assessment Summary Assessment Hold calf stretch right now and over DF/IV secondary to physician suggestion per patient today physician noted still light hair fx over base 1st MTP and wants distance walking limited <5600 ft and DF/IV movements. Tx focused on instruction of self betweeen 2-3 MTP mobs post manual and HEP review toe abd, flexion, arch lift, progressing into SLS floor then green foam with cuing of awareness of foot triangle COG over MADI and glut facilitation with upright posture, added band walk for glut strengthening support with + feedback results to tx. Physical Therapy Plan Frequency and Duration Frequency of Treatment 2x/Week Duration of Treatment 12 weeks Plan of Care Start Date 05/31/19 Plan of Care End Date 08/29/19 Therapeutic Interventions Therapeutic Interventions Balance Training,Coordination Training,Gait Training,Home Exercise Program,Joint Mobilizations,Manual Therapy, Neuromuscular Re-education, Patient/Caregiver Education, Self-Care/Home Management,Soft Tissue Mobilization,Taping, Therapeutic Activities, Therapeutic Exercises Modalities Cold Pack/Ice Massage,Electric Stimulation,Hot Packs, Infrared Therapy,Ultrasound Next Visit Focus/Plan Next Note Type Treatment Note Next Visit Plan Hold calf stretch secondary per physician suggestion and limit distance walking <5600 ft to allow 1st MTP healing. Assess post tx tolerance and review HEP. Continue per PT POC: Single leg balance start manual therapy for swelling managment PROM, calf stretch and STM short foot ex gait training with heel strike
--- NOTE | 2019-06-15 08:15 | PT.OTN ---
Current Diagnoses Bunion of right foot (06/15/19) Unspecified acquired deformity of unspecified lower leg (06/15/19) Unspecified injury of right foot, initial encounter (06/15/19) Physical Therapy Treatment Note PT-OP-A Visit Information Start: 05/31/19 08:15 Freq: Status: Active Protocol: Document 06/15/19 07:29 SP (Rec: 06/15/19 08:19 SP [id number]) Out-Patient Physical Therapy Visit Information Visit Information Visit Type Treatment Note Visit Start Time 07:31 Visit Stop Time 08:15 Total Visit Minutes 44 Visit Number 09/22 Number of FRAMING CARPENTER Visits 2 PT-OP-B Current Condition Start: 05/31/19 08:15 Freq: Status: Active Protocol: Document 05/31/19 11:15 HH (Rec: 05/31/19 12:21 HH [email or web address]) Current Condition History of Current Condition Onset Date 03/27/19 Current Complaints L foot and big toe pain, difficulty in walking and decreased balance. History of Current Condition Pt is a 64 yo male 8 weeks status post arthodesis first tarsometatarsal joint at R foot; modified Child bunionectomy R foot; Osteotomy at 2nd and 3rd metatarsal; Plantar plate repair second metarsal phalangeal joint and hammertoe procedure, which was done at [facility] on Mar 27, 2019. Rehab protocol includes gentle progressive ROM and strengthening program; modalities to reduce inflammation. Pt is WBAT now and no longer need to wear boot since May 09, 2019. His surgeon also told him not to perform any impactful activities until 12 weeks postop. Pt reports limitation with foot and big toe mobility at this point and limits his walking ability up to 1 mile/day only. 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 Pt wants to be able to walk 500 miles this / next summer. Pt also reports his nerve conduction test on RLE is only 75% due to herniated disc which possibly caused his limited sensation to R LE. Pt has a long history of bunion and he noticed he tends to push off through his medial side of the big toe prior to surgery. In addition, pt states he also has radiating L hip pain to posterior thigh after proloned sitting or sitting at a low level chair, but tends to relieve with movement or reduced seated hip flexion angle. Prior Treatments and Tests See post op x-ray in chart. Future Testing and Treatments Planned Next appt with surgeon 06/05/19 Treatment Goals Patient/Caregiver Goals 1. Able to improve his R big toe and ankle mobility 2. able to improve single leg balance 3. able to normalize his gait pattern 4. Able to jog 5 miles + walk 3-5 miles a day PT-OP-C Subjective Start: 05/31/19 08:15 Freq: Status: Active Protocol: Document 06/15/19 07:29 SP (Rec: 06/15/19 08:19 SP [id number]) OP-PT Subjective Patient Comments Patient Comments Pt stated feeling pain over dorsal 1 st MTP R LE still . Emailed Doc and she stated limit 1 mil walking and no activity/ex that pulls on that jt IV/EV DF. Patient Reported Progress Same PT-OP-G Mobility & Gait Start: 05/31/19 08:15 Freq: Status: Active Protocol: Document 05/31/19 11:15 HH (Rec: 05/31/19 16:21 HH [email or web address]) OP Gait Assessment Gait Gait Assistance Required: Independent Gait Deviations General Gait Pattern Antalgic,Decreased Stride Length,Decreased Feet Clearance Factors Limiting Gait Function Factors Limiting Gait Function Limited Range of Motion,Pain, Poor Balance Comments Gait Comments R foot turned out during gait with limited forefoot push off at preswing. Pt has limited R heel strike and toe extension for initial contact and terminal stance PT-OP-J Posture/Palpation/Skin Start: 05/31/19 08:15 Freq: Status: Active Protocol: Document 05/31/19 11:15 HH (Rec: 05/31/19 16:21 HH [email or web address]) Posture Evaluation Position Standing Evaluation View Anterior Ankle/Foot Posture (R) Pronated,(R) Forefoot Abducted Foot Arch (L) Medium Arch,(R) Low Arch PT-OP-K Range of Motion Start: 05/31/19 08:15 Freq: Status: Active Protocol: Document 05/31/19 11:15 HH (Rec: 05/31/19 16:21 HH [email or web address]) Lumbar Spine Range of Motion Lumbar Spine Active Percentage Comments able to reach metatarsal for toe touch test Ankle and Foot Goniometric Range of Motion Ankle and Foot Right Active Ankle/Foot ROM WFL No Testing Position Supine Dorsiflexion with Knee Extended 0 Plantarflexion 55 Inversion 15 Eversion 8 Left Active Ankle/Foot ROM WFL Yes Testing Position Supine Dorsiflexion with Knee Extended 5 Plantarflexion 75 Inversion 20 Eversion 14 Toe Range of Motion Toe Right Great Toe Toe ROM WFL No MTP Flexion Active (degrees) 5 MTP Extension Active (degrees) 15 Left Great Toe Toe ROM WFL Yes MTP Flexion Active (degrees) 17 MTP Extension Active (degrees) 55 PT-OP-M Strength Start: 05/31/19 08:15 Freq: Status: Active Protocol: Document 05/31/19 11:15 HH (Rec: 05/31/19 16:21 HH [email or web address]) Knee Strength Knee Manual Muscle Testing Right Flexion (S2) 5 Normal Extension (L3) 5 Normal Left Flexion (S2) 5 Normal Extension (L3) 5 Normal Ankle/Foot Strength Ankle and Foot Manual Muscle Testing Right Dorsiflexion (L4) 4- Good- Plantarflexion (S1) 4 Good Inversion 4- Good- Eversion (S1) 4- Good- Reason Not Measured Pain Left Dorsiflexion (L4) 5 Normal Plantarflexion (S1) 5 Normal Inversion 5 Normal Eversion (S1) 5 Normal Toe Strength Toe Manual Muscle Testing Right Great Toe Flexion 3+ Fair+ Extension 3+ Fair+ Reason Not Measured Pain Left Great Toe Flexion 5 Normal Extension 5 Normal PT-OP-Q Treatments Start: 05/31/19 08:15 Freq: Status: Active Protocol: Document 06/15/19 07:29 SP (Rec: 06/15/19 08:19 SP [id number]) Therapeutic Exercises Supine Exercises ankle TB Supine Exercise Name ankle ROM DF, PF, IV, EV only at this time Comments see subjective dr response MTP ABD, arch lift Reps/Minutes x10 supine bridge Supine Exercise Name single on heels alternate LE Side bilateral Reps/Minutes 3x10 Comments for HEP Standing Exercises balance board Reps/Minutes 3 min f/b Eccentric step down Equipment Used 4 step band walk Reps/Minutes 10 ft x4 laps single leg stance Standing Exercise Name focus on creating foot arch Side right Resistance floor, 1st set, green foam 2nd set Reps/Minutes 30 x2 each LE Comments next to support for HEP Manual Therapy Treatment Soft Tissue Mobilization Plantar fascia Mobilization Type Sustained Pressure,Trigger Point Release Intensity/Depth Superficial Body Position Supine Comments along with passive big toe ext scar mob Mobilization Type Cross-Friction Intensity/Depth Superficial Body Position Supine Comments educated pt to cross friction self scar mob around incision site with minimal pressure. Joint Mobilizations metatarsals Joint 1st-4th Direction inferior/ superior Grade II Body Position Supine Reps/Duration 4 mins big toe MTP Joint for extension and flexion Direction distraction, inferior glide Grade II Body Position Supine Reps/Duration 10 mins big toe DIP Joint for extension and flexion Direction distraction, inferior glide Grade II Body Position Supine Reps/Duration 8 mins PT-OP-T Assessment and Plan Start: 05/31/19 08:15 Freq: Status: Active Protocol: Document 06/15/19 07:29 SP (Rec: 06/15/19 08:19 SP [id number]) Physical Therapy Assessment Goals gait Impairment Pt amb with a R foot inspector returned materials Senior Teradata Developer Goal (LTG) Pt will increase his overall R foot ROM by 10 degrees to improve his gait mechanics with proper heel strike and toes off on R side. LTG Duration 12 weeks Return to sports Impairment unable to jog/ hike at this point Short Term Goal (STG) pt will be able to light jog 2 miles without discomfort of R foot STG Duration 6 weeks Senior Teradata Developer Goal (LTG) Pt will be able to light jog 3 miles a day (speed= 4MPH) without discomfrot of R foot. LTG Duration 12 weeks Activity tolerance Impairment Pt unable to paulie >1 mile walk /day at this point Short Term Goal (STG) Pt will be able to amb 1 mile/ day without any discomfort at R foot STG Duration 6 weeks Assisted Goal (LTG) Pt will be able to amb 3-5 miles/day without any discomfort at R foot. LTG Duration 12 weeks LEFS Impairment pt scores 65 for LEFS Short Term Goal (STG) Pt will score >70 on LEFS to improve his quality of life STG Duration 6 weeks Assisted Goal (LTG) Pt will score >75 on LEFS to improve his quality of life in order to return to his daily joggin routine. LTG Duration 12 weeks Assessment Summary Assessment HOLD OFF resisted DF/PF/IV/EV for healing R 1t MTP per patient statement from recent email doc response to his pain report. Added eccentric step down, single bridge today, balance board f/b and reviewed HEP, stopped Tb and only AROM . Pt stated no pain, responded well. Focused functional activities and ankle stability not over ROM. Physical Therapy Plan Frequency and Duration Frequency of Treatment 2x/Week Duration of Treatment 12 weeks Plan of Care Start Date 05/31/19 Plan of Care End Date 08/29/19 Therapeutic Interventions Therapeutic Interventions Balance Training,Coordination Training,Gait Training,Home Exercise Program,Joint Mobilizations,Manual Therapy, Neuromuscular Re-education, Patient/Caregiver Education, Self-Care/Home Management,Soft Tissue Mobilization,Taping, Therapeutic Activities, Therapeutic Exercises Modalities Cold Pack/Ice Massage,Electric Stimulation,Hot Packs, Infrared Therapy,Ultrasound Next Visit Focus/Plan Next Note Type Treatment Note Next Visit Plan Hold calf stretch and resisted ankle movements secondary per physician suggestion and limit distance walking 1 mile to allow 1st MTP healing. Assess post tx tolerance and review HEP. Next tx add: shuttle recovery, balance, hurdles balance and obstacle course foam pads. Continue per PT POC: Single leg balance start manual therapy for swelling managment PROM, calf stretch and STM short foot ex gait training with heel strike
--- NOTE | 2019-06-22 14:05 | PT.OTN ---
Current Diagnoses Bunion of right foot (06/22/19) Unspecified acquired deformity of unspecified lower leg (06/22/19) Unspecified injury of right foot, initial encounter (06/22/19) Physical Therapy Treatment Note PT-OP-A Visit Information Start: 05/31/19 08:15 Freq: Status: Active Protocol: Document 06/22/19 13:00 MB (Rec: 06/22/19 13:10 MB [id number]) Out-Patient Physical Therapy Visit Information Visit Information Visit Type Treatment Note Visit Start Time 13:00 Visit Stop Time 13:53 Total Visit Minutes 53 Visit Number 09/22 Number of AUTOMATIC BEAM WARPER TENDER Visits 0 PT-OP-B Current Condition Start: 05/31/19 08:15 Freq: Status: Active Protocol: Document 05/31/19 11:15 HH (Rec: 05/31/19 12:21 HH [email or web address]) Current Condition History of Current Condition Onset Date 03/27/19 Current Complaints L foot and big toe pain, difficulty in walking and decreased balance. History of Current Condition Pt is a 64 yo male 8 weeks status post arthodesis first tarsometatarsal joint at R foot; modified Child bunionectomy R foot; Osteotomy at 2nd and 3rd metatarsal; Plantar plate repair second metarsal phalangeal joint and hammertoe procedure, which was done at [facility] on Mar 27, 2019. Rehab protocol includes gentle progressive ROM and strengthening program; modalities to reduce inflammation. Pt is WBAT now and no longer need to wear boot since May 09, 2019. His surgeon also told him not to perform any impactful activities until 12 weeks postop. Pt reports limitation with foot and big toe mobility at this point and limits his walking ability up to 1 mile/day only. 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 Pt wants to be able to walk 500 miles this / next summer. Pt also reports his nerve conduction test on RLE is only 75% due to herniated disc which possibly caused his limited sensation to R LE. Pt has a long history of bunion and he noticed he tends to push off through his medial side of the big toe prior to surgery. In addition, pt states he also has radiating L hip pain to posterior thigh after proloned sitting or sitting at a low level chair, but tends to relieve with movement or reduced seated hip flexion angle. Prior Treatments and Tests See post op x-ray in chart. Future Testing and Treatments Planned Next appt with surgeon 06/05/19 Treatment Goals Patient/Caregiver Goals 1. Able to improve his R big toe and ankle mobility 2. able to improve single leg balance 3. able to normalize his gait pattern 4. Able to jog 5 miles + walk 3-5 miles a day PT-OP-C Subjective Start: 05/31/19 08:15 Freq: Status: Active Protocol: Document 06/22/19 13:00 MB (Rec: 06/22/19 13:10 MB [id number]) OP-PT Subjective Patient Comments Patient Comments Pt states that he is working through a L4-5 disk issue with pain down the back of the left hamstring. He ended up in the ER d/t pain and sensory issues in the right leg. He is wearing the boot on his right foot after fracture and is backing off some exercises. PT-OP-G Mobility & Gait Start: 05/31/19 08:15 Freq: Status: Active Protocol: Document 05/31/19 11:15 HH (Rec: 05/31/19 16:21 HH [email or web address]) OP Gait Assessment Gait Gait Assistance Required: Independent Gait Deviations General Gait Pattern Antalgic,Decreased Stride Length,Decreased Feet Clearance Factors Limiting Gait Function Factors Limiting Gait Function Limited Range of Motion,Pain, Poor Balance Comments Gait Comments R foot turned out during gait with limited forefoot push off at preswing. Pt has limited R heel strike and toe extension for initial contact and terminal stance PT-OP-J Posture/Palpation/Skin Start: 05/31/19 08:15 Freq: Status: Active Protocol: Document 05/31/19 11:15 HH (Rec: 05/31/19 16:21 HH [email or web address]) Posture Evaluation Position Standing Evaluation View Anterior Ankle/Foot Posture (R) Pronated,(R) Forefoot Abducted Foot Arch (L) Medium Arch,(R) Low Arch PT-OP-K Range of Motion Start: 05/31/19 08:15 Freq: Status: Active Protocol: Document 05/31/19 11:15 HH (Rec: 05/31/19 16:21 HH [email or web address]) Lumbar Spine Range of Motion Lumbar Spine Active Percentage Comments able to reach metatarsal for toe touch test Ankle and Foot Goniometric Range of Motion Ankle and Foot Right Active Ankle/Foot ROM WFL No Testing Position Supine Dorsiflexion with Knee Extended 0 Plantarflexion 55 Inversion 15 Eversion 8 Left Active Ankle/Foot ROM WFL Yes Testing Position Supine Dorsiflexion with Knee Extended 5 Plantarflexion 75 Inversion 20 Eversion 14 Toe Range of Motion Toe Right Great Toe Toe ROM WFL No MTP Flexion Active (degrees) 5 MTP Extension Active (degrees) 15 Left Great Toe Toe ROM WFL Yes MTP Flexion Active (degrees) 17 MTP Extension Active (degrees) 55 PT-OP-M Strength Start: 05/31/19 08:15 Freq: Status: Active Protocol: Document 05/31/19 11:15 HH (Rec: 05/31/19 16:21 HH [email or web address]) Knee Strength Knee Manual Muscle Testing Right Flexion (S2) 5 Normal Extension (L3) 5 Normal Left Flexion (S2) 5 Normal Extension (L3) 5 Normal Ankle/Foot Strength Ankle and Foot Manual Muscle Testing Right Dorsiflexion (L4) 4- Good- Plantarflexion (S1) 4 Good Inversion 4- Good- Eversion (S1) 4- Good- Reason Not Measured Pain Left Dorsiflexion (L4) 5 Normal Plantarflexion (S1) 5 Normal Inversion 5 Normal Eversion (S1) 5 Normal Toe Strength Toe Manual Muscle Testing Right Great Toe Flexion 3+ Fair+ Extension 3+ Fair+ Reason Not Measured Pain Left Great Toe Flexion 5 Normal Extension 5 Normal PT-OP-Q Treatments Start: 05/31/19 08:15 Freq: Status: Active Protocol: Document 06/22/19 13:00 MB (Rec: 06/22/19 14:05 MB [id number]) Therapeutic Exercises Supine Exercises Bridge with band around knees--heels apart and heels together Comments 30 sec hold B, focus on core Prudencio stretch Comments Core engagement with pelvic tilt and progressive heel back to buttock HS with abdominal drawing in Comments 3 reps B legs Abdominal drawing in Comments 5 reps, hold up to 15 sec Sitting Exercises Hammock foot with level 1 band, toe flexion and ankle DF and PF Comments Pain-free range, gentle big toe flex and toes ext Comments 5 reps big toe ext Comments 2 reps Self-Care/Home Management Treatment Education Other Education Extensive ed to pt in benefits of aquatic therapy for foot fracture and back pain. He does not like the pool but will consider. Ed pt on safe exercises, need for bone healing. Pt is not able to verbalize safe exercise plan. PT is cautious about biking d/ t lumbar disk issue but encouraged pt to try upright stationary bike if he does try this. PT-OP-T Assessment and Plan Start: 05/31/19 08:15 Freq: Status: Active Protocol: Document 06/22/19 13:00 MB (Rec: 06/22/19 14:05 MB [id number]) Physical Therapy Assessment Goals gait Impairment Pt amb with a R foot head turning machine operator Alf Goal (LTG) Pt will increase his overall R foot ROM by 10 degrees to improve his gait mechanics with proper heel strike and toes off on R side. LTG Duration 12 weeks Return to sports Impairment unable to jog/ hike at this point Short Term Goal (STG) pt will be able to light jog 2 miles without discomfort of R foot STG Duration 6 weeks Radiologic Technician Goal (LTG) Pt will be able to light jog 3 miles a day (speed= 4MPH) without discomfrot of R foot. LTG Duration 12 weeks Activity tolerance Impairment Pt unable to paulie >1 mile walk /day at this point Short Term Goal (STG) Pt will be able to amb 1 mile/ day without any discomfort at R foot STG Duration 6 weeks Radiologic Technician Goal (LTG) Pt will be able to amb 3-5 miles/day without any discomfort at R foot. LTG Duration 12 weeks LEFS Impairment pt scores 65 for LEFS Short Term Goal (STG) Pt will score >70 on LEFS to improve his quality of life STG Duration 6 weeks Radiologic Technician Goal (LTG) Pt will score >75 on LEFS to improve his quality of life in order to return to his daily joggin routine. LTG Duration 12 weeks Assessment Summary Assessment Progressed gentle exercises today and ed pt to stop if he has pain. Pt is not very receptive to aquatic therapy but encouraged him to think about it in setting of injuries. Foot exercise with band today more for gentle plantar fascia stretch and AAROM than strengthening and pt will stop if pain. Plan is to hold PT until he follows up with orthopedist on 07/23/2019 . If he agrees to pool therapy , he will call in to schedule. Physical Therapy Plan Frequency and Duration Frequency of Treatment 2x/Week Duration of Treatment 12 weeks Plan of Care Start Date 05/31/19 Plan of Care End Date 08/29/19 Therapeutic Interventions Therapeutic Interventions Aquatic Therapy,Balance Training,Coordination Training ,Gait Training,Home Exercise Program,Joint Mobilizations, Manual Therapy,Neuromuscular Re-education,Patient/Caregiver Education,Self-Care/Home Management,Soft Tissue Mobilization,Taping, Therapeutic Activities, Therapeutic Exercises Modalities Cold Pack/Ice Massage,Electric Stimulation,Hot Packs, Infrared Therapy,Ultrasound Next Visit Focus/Plan Next Note Type Treatment Note Next Visit Plan Progress as appropriate
--- NOTE | 2019-06-22 14:05 | PT.OPPOC ---
Physical, Occupational & Speech Therapy At [facility] Current Diagnoses Bunion of right foot (06/22/19) Unspecified acquired deformity of unspecified lower leg (06/22/19) Unspecified injury of right foot, initial encounter (06/22/19) Visit Care Team Role Provider Type Sagrario Vargas DO Attending Provider Non-Staff Primary Care Provider Specialty: Medical Address: [address] [place] [address], [id number] Email: Plan Of Care PT-OP-T Assessment and Plan Start: 05/31/19 08:15 Freq: Status: Active Protocol: Document 06/22/19 13:00 MB (Rec: 06/22/19 14:05 MB [id number]) Physical Therapy Assessment Goals gait Impairment Pt amb with a R foot turning lathe tender Metal Cut Off Saw Tender Goal (LTG) Pt will increase his overall R foot ROM by 10 degrees to improve his gait mechanics with proper heel strike and toes off on R side. LTG Duration 12 weeks Return to sports Impairment unable to jog/ hike at this point Short Term Goal (STG) pt will be able to light jog 2 miles without discomfort of R foot STG Duration 6 weeks Alf Goal (LTG) Pt will be able to light jog 3 miles a day (speed= 4MPH) without discomfrot of R foot. LTG Duration 12 weeks Activity tolerance Impairment Pt unable to paulie >1 mile walk /day at this point Short Term Goal (STG) Pt will be able to amb 1 mile/ day without any discomfort at R foot STG Duration 6 weeks Metal Cut Off Saw Tender Goal (LTG) Pt will be able to amb 3-5 miles/day without any discomfort at R foot. LTG Duration 12 weeks LEFS Impairment pt scores 65 for LEFS Short Term Goal (STG) Pt will score >70 on LEFS to improve his quality of life STG Duration 6 weeks Metal Cut Off Saw Tender Goal (LTG) Pt will score >75 on LEFS to improve his quality of life in order to return to his daily joggin routine. LTG Duration 12 weeks Assessment Summary Assessment Progressed gentle exercises today and ed pt to stop if he has pain. Pt is not very receptive to aquatic therapy but encouraged him to think about it in setting of injuries. Foot exercise with band today more for gentle plantar fascia stretch and AAROM than strengthening and pt will stop if pain. Plan is to hold PT until he follows up with orthopedist on 07/23/2019 . If he agrees to pool therapy , he will call in to schedule. Physical Therapy Plan Frequency and Duration Frequency of Treatment 2x/Week Duration of Treatment 12 weeks Plan of Care Start Date 05/31/19 Plan of Care End Date 08/29/19 Therapeutic Interventions Therapeutic Interventions Aquatic Therapy,Balance Training,Coordination Training ,Gait Training,Home Exercise Program,Joint Mobilizations, Manual Therapy,Neuromuscular Re-education,Patient/Caregiver Education,Self-Care/Home Management,Soft Tissue Mobilization,Taping, Therapeutic Activities, Therapeutic Exercises Modalities Cold Pack/Ice Massage,Electric Stimulation,Hot Packs, Infrared Therapy,Ultrasound Next Visit Focus/Plan Next Note Type Treatment Note Next Visit Plan Progress as appropriate Plan of Care Dates Plan of Care Start Date 05/31/19 Plan of Care End Date 08/29/19 Electronically Signed by: Rocio Chen, PT 06/22/19 0449 Please Sign and Return: I have reviewed this Plan of Care and certify that the skilled therapy services above are required to meet the patient?s needs. Physician Signature Date Printed Name and Credentials Clinical Instructor Signature Printed Name and Credentials
--- NOTE | 2019-07-24 08:56 | PT.OPPN ---
Current Diagnoses Bunion of right foot (06/22/19) Unspecified acquired deformity of unspecified lower leg (06/22/19) Unspecified injury of right foot, initial encounter (06/22/19) Physical Therapy Progress Note PT-OP-T Assessment and Plan Start: 05/31/19 08:15 Freq: Status: Active Protocol: Document 07/24/19 08:50 HH (Rec: 07/24/19 08:53 HH [email or web address]) Physical Therapy Plan Hold Physical Therapy Reason For Hold Pt no show today. 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 Pt's follow up appt with surgeon was cancelled d/t coronavirus outbreak. [place] [facility] [place] and showed his screws in R 1st metatarsal are broken. Pt reports he was doing walking with his boot for the past 6 weeks with minimal discomfort. Pt did contact with surgeon who advised him to NWB as much as possible until his next follow up which is in August most likely. Educated him again with his new NWB protocol and provided him exercises for hip and knee strengthening without WB through his foot.
--- NOTE | 2019-11-01 08:32 | PT.OPDS ---
Current Diagnoses Bunion of right foot (06/22/19) Unspecified acquired deformity of unspecified lower leg (06/22/19) Unspecified injury of right foot, initial encounter (06/22/19) Visit Care Team Role Provider Type Sagrario Vargas DO Attending Provider Non-Staff Primary Care Provider Specialty: Medical Address: [address] [place] [address], [phone] Email: Visit Number Visit Number 09/22 Discharge Summary PT-OP-B Current Condition Start: 05/31/19 08:15 Freq: Status: Active Protocol: Document 05/31/19 11:15 HH (Rec: 05/31/19 12:21 HH [email or web address]) Current Condition History of Current Condition Onset Date 03/27/19 Current Complaints L foot and big toe pain, difficulty in walking and decreased balance. History of Current Condition Pt is a 64 yo male 8 weeks status post arthodesis first tarsometatarsal joint at R foot; modified Child bunionectomy R foot; Osteotomy at 2nd and 3rd metatarsal; Plantar plate repair second metarsal phalangeal joint and hammertoe procedure, which was done at [facility] on Mar 27, 2019. Rehab protocol includes gentle progressive ROM and strengthening program; modalities to reduce inflammation. Pt is WBAT now and no longer need to wear boot since May 09, 2019. His surgeon also told him not to perform any impactful activities until 12 weeks postop. Pt reports limitation with foot and big toe mobility at this point and limits his walking ability up to 1 mile/day only. 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 Pt wants to be able to walk 500 miles this / next summer. Pt also reports his nerve conduction test on RLE is only 75% due to herniated disc which possibly caused his limited sensation to R LE. Pt has a long history of bunion and he noticed he tends to push off through his medial side of the big toe prior to surgery. In addition, pt states he also has radiating L hip pain to posterior thigh after proloned sitting or sitting at a low level chair, but tends to relieve with movement or reduced seated hip flexion angle. Prior Treatments and Tests See post op x-ray in chart. Future Testing and Treatments Planned Next appt with surgeon 06/05/19 Treatment Goals Patient/Caregiver Goals 1. Able to improve his R big toe and ankle mobility 2. able to improve single leg balance 3. able to normalize his gait pattern 4. Able to jog 5 miles + walk 3-5 miles a day PT-OP-C Subjective Start: 05/31/19 08:15 Freq: Status: Active Protocol: Document 11/01/19 08:31 HH (Rec: 11/01/19 08:32 HH [email or web address]) OP-PT Subjective Patient Comments Patient Comments Pt called in and reported his screws broke and is unable to resume PT. Aug at earliest. PT-OP-G Mobility & Gait Start: 05/31/19 08:15 Freq: Status: Active Protocol: Document 05/31/19 11:15 HH (Rec: 05/31/19 16:21 [email or web address]) OP Gait Assessment Gait Gait Assistance Required: Independent Gait Deviations General Gait Pattern Antalgic,Decreased Stride Length,Decreased Feet Clearance Factors Limiting Gait Function Factors Limiting Gait Function Limited Range of Motion,Pain, Poor Balance Comments Gait Comments R foot turned out during gait with limited forefoot push off at preswing. Pt has limited R heel strike and toe extension for initial contact and terminal stance PT-OP-J Posture/Palpation/Skin Start: 05/31/19 08:15 Freq: Status: Active Protocol: Document 05/31/19 11:15 HH (Rec: 05/31/19 16:21 [email or web address]) Posture Evaluation Position Standing Evaluation View Anterior Ankle/Foot Posture (R) Pronated,(R) Forefoot Abducted Foot Arch (L) Medium Arch,(R) Low Arch PT-OP-K Range of Motion Start: 05/31/19 08:15 Freq: Status: Active Protocol: Document 05/31/19 11:15 HH (Rec: 05/31/19 16:21 [email or web address]) Lumbar Spine Range of Motion Lumbar Spine Active Percentage Comments able to reach metatarsal for toe touch test Ankle and Foot Goniometric Range of Motion Ankle and Foot Right Active Ankle/Foot ROM WFL No Testing Position Supine Dorsiflexion with Knee Extended 0 Plantarflexion 55 Inversion 15 Eversion 8 Left Active Ankle/Foot ROM WFL Yes Testing Position Supine Dorsiflexion with Knee Extended 5 Plantarflexion 75 Inversion 20 Eversion 14 Toe Range of Motion Toe Right Great Toe Toe ROM WFL No MTP Flexion Active (degrees) 5 MTP Extension Active (degrees) 15 Left Great Toe Toe ROM WFL Yes MTP Flexion Active (degrees) 17 MTP Extension Active (degrees) 55 PT-OP-M Strength Start: 05/31/19 08:15 Freq: Status: Active Protocol: Document 05/31/19 11:15 HH (Rec: 05/31/19 16:21 [email or web address]) Knee Strength Knee Manual Muscle Testing Right Flexion (S2) 5 Normal Extension (L3) 5 Normal Left Flexion (S2) 5 Normal Extension (L3) 5 Normal Ankle/Foot Strength Ankle and Foot Manual Muscle Testing Right Dorsiflexion (L4) 4- Good- Plantarflexion (S1) 4 Good Inversion 4- Good- Eversion (S1) 4- Good- Reason Not Measured Pain Left Dorsiflexion (L4) 5 Normal Plantarflexion (S1) 5 Normal Inversion 5 Normal Eversion (S1) 5 Normal Toe Strength Toe Manual Muscle Testing Right Great Toe Flexion 3+ Fair+ Extension 3+ Fair+ Reason Not Measured Pain Left Great Toe Flexion 5 Normal Extension 5 Normal PT-OP-T Assessment and Plan Start: 05/31/19 08:15 Freq: Status: Active Protocol: Document 11/01/19 08:25 HH (Rec: 11/01/19 08:29 [email or web address]) Physical Therapy Plan Discharge Physical Therapy Discharge Reasons Patient Request Discharge Comments Pt called in and reported his screws broke and is unable to resume PT. Aug at earliest.
== END 2019-12-27 09:08 ==
LOC: PHYS 13:00
PROVIDERS: PCP Family Medicine; Visit Provider Family Medicine
DX: M21.969 Unspecified acquired deformity of unspecified lower leg (principal); S99.921A Unspecified injury of right foot, initial encounter; M21.611 Bunion of right foot
CPT/HCPCS: 97110; 97140; 97162; 97535

== ENCOUNTER 2019-12-15 09:11 | Emergency (ER) | payer OTHER, SELFPAY ==
[2019-12-15 09:26] VITALS: BP 110/58; PULSE 58; RESP 16; TEMP 36.9; O2SAT 99; BMI 24.3
--- NOTE | 2019-12-15 09:39 | ED_ITS ---
HPI - Back Pain/Injury General Chief Complaint: Back Pain/Injury Stated Complaint: Sharp pain in lower back Time Seen by Provider: 12/15/19 09:19 Source: patient Mode of arrival: Ambulatory Limitations: physical limitation History of Present Illness HPI Narrative: Patient is a 64-year-old male with prior history of back pain and injury presenting today with acute onset of back pain. He bent over to feed the dog when he had sudden InStent lumbar pain radiating laterally. 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 He has no changes in bowel or bladder habits. He took naproxen 220 mg and 500 mg of Tylenol prior to arrival he says his pain is better however if he turns it is quite severe. He says between L4 and L5 he has no disc they are trying and min to surgery but it keeps getting delayed. MD Complaint: back pain Duration: constant Related Data Previous Rx's Medication Instructions Recorded diazepam [Valium] 5 - 10 mg PO BID-TID PRN #14 tab 01/28/19 lidocaine 1 patch TOP DAILY #15 each 01/28/19 diazepam [Valium] 5 mg PO BID PRN #10 tab 12/15/19 Allergies Allergy/AdvReac Type Severity Reaction Status Date / Time No Known Drug Allergies Allergy Verified 01/28/19 12:48 Review of Systems Review of Systems Narrative: GENERAL: Denies chills,fever HEENT: Denies throat pain RESPIRATORY: Denies dyspnea, cough, wheezing CARDIOVASCULAR: Denies chest pain, palpitations GASTROINTESTINAL: Denies nausea, vomiting MUSCULOSKELETAL: See HPI SKIN: No rash, no laceration, no pruritus NEUROLOGIC: Denies weakness, dizziness, headache, new numbness 8 point review of systems is negative except for those stated above and HPI Patient History Medical History Back pain (Acute) Surgical History History of knee surgery (Acute) History of shoulder surgery (Acute) Social History Smoking Status: Never smoker Smoking Status: Never smoker alcohol intake frequency: a few times a week Alcohol type: beer Substance Use Type: does not use Exam Initial Vital Signs Initial Vital Signs: Vital Signs Temperature 98.5 F 12/15/19 09:26 Pulse Rate 58 L 12/15/19 09:26 Respiratory Rate 16 12/15/19 09:26 Blood Pressure 110/58 L 12/15/19 09:26 Pulse Oximetry 99 12/15/19 09:26 GENERAL: Well-appearing, well-nourished and in no acute distress. HEENT: Head atraumatic,EOMI, pupils reactive, face symmetric, moist mucous membranes CARDIOVASCULAR: Regular rate and rhythm without murmurs, rubs or gallops. RESPIRATORY: Breath sounds equal bilaterally, no wheezes rales or rhonchi. BACK: No vertebral tenderness no step-off the pain mildly in bilateral lumbar area EXTREMITIES: Normal range of motion, no clubbing or edema. Neurovascularly intact NEUROLOGICAL: Alert and oriented x4.Normal gait and speech. The sensation at ba seline in lower extremities SKIN: Warm, dry, no laceration, no petechiae, no rashes or lesions. Course Orders Ordered: Discontinued Medications Ketorolac Tromethamine (Toradol) 30 mg IM NOW ONE Stop: 12/15/19 09:39 Last Admin: 12/15/19 09:49 Dose: 30 mg Documented by: MIRELA Vital Signs Vital signs: Vital Signs - 8 hr 12/15/19 09:26 Temperature 98.5 F Pulse Rate 58 L Respiratory Rate 16 Blood Pressure 110/58 L Pulse Oximetry 99 MDM - Back Pain/Injury MDM Narrative Medical decision making narrative: Patient has no injury no need for imaging no signs concerning that require a stat MRI. At this time I recommend outpatient follow-up and pain control Discharge Plan Departure Patient Disposition: Home Clinical Impression: Strain of lumbar region Qualifiers: Encounter type: initial encounter Qualified Code(s): S39.012A - Strain of muscle, fascia and tendon of lower back, initial encounter Discharge Date/Time: 12/15/19 10:16 Instructions: DI for Back Spasm Activity Restrictions/Additional Instructions: *You have been diagnosed with back strain no sciatica *What to do: Recommend light activity and stretching today may need heating pad 30 minutes at a time, recommend no heavy lifting more than 10-15 lb in till back has completely improved *Continue to take medications as directed Ibuprofen 600 mg every 6-8 hours if needed for [id number] pain Valium 5 mg every 12 hours if needed for muscle spasm *Follow up with your primary care provider in 2-3 days *Return to ER if you should have weakness in lower extremities loss of urine/stool increased neuropathy or any new, worsening or concerning symptoms CONTROLLED SUBSTANCE DISCHARGE (Narcotoic/benzodiazepine/Flexeril/Phenergan) 1. You have been prescribed narcotic medications, it does have acetaminophen/Tylenol/paracetamol in it so do not take extra Tylenol or Tylenol containing products TRAMADOL DOES NOT CONTAIN TYLENOL 2. Please understand that we cannot provide further refills of narcotics, benzodiazepines or controlled substances through the ED and her pain management will need to be through your provider. 3. While on these medications you cannot drive or operate heavy machinery. 4. You cannot sign legal documents or perform any duties such as this. 5. As long as you're taking opiate pain medications he should also be taking a stool softener such as Colace, Dulcolax, MiraLAX or prune juice, to help avoid constipation. Prescriptions: New diazepam [Valium] 5 mg tablet 5 mg PO BID PRN (Reason: muscle spasm) Qty: 10 RF: 0 No Action diazepam [Valium] 5 mg tablet 5 - 10 mg PO BID-TID PRN (Reason: muscle spasm) Qty: 14 RF: 0 lidocaine 5 % adhesive patch,medicated 1 patch TOP DAILY Qty: 15 RF: 0 Referrals: Sagrario Vargas DO [Primary Care Provider] -
[2019-12-15] MEDS: KETOROLAC 60 MG/2 ML VIAL 30 MG IM (09:49)
--- NOTE | 2019-12-15 11:46 | PC.NURSE ---
recieved a call from patient after discharge asking about appropriate time to take follow up IBUprofen. Lois stated 6-8Hrs.
== END 2019-12-15 10:16 | disposition home or self-care (01) ==
PROVIDERS: Emergency Provider Emergency Medicine; PCP Family Medicine
DX: S39.012A Strain of muscle, fascia and tendon of lower back, initial encounter (principal)
CPT/HCPCS: 96372; 99283; J1885

== ENCOUNTER 2020-03-12 08:15 | Outpatient (RCR) | payer OTHER, SELFPAY ==
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
== END 2020-03-14 13:10 ==
LOC: PHYS 08:15
PROVIDERS: PCP Family Medicine; Referring Provider Physical Medicine & Rehabilitation; Visit Provider Physical Medicine & Rehabilitation
DX: M51.26 Other intervertebral disc displacement, lumbar region (principal)
CPT/HCPCS: 97110; 97140; 97162; 97535

== ENCOUNTER → 2020-05-29 09:44 | Outpatient (CLI) | payer OTHER, SELFPAY ==
[2020-05-29] MEDS: COVID-19 VACC #1, MRNA(MOD) 100 MCG/0.5 ML VIAL IM (09:50)
== END ==
PROVIDERS: PCP Family Medicine; Visit Provider Internal Medicine
DX: Z23 Encounter for immunization (principal)
CPT/HCPCS: 0011A; 91301

== ENCOUNTER → 2020-06-26 10:10 | Outpatient (CLI) | payer OTHER, SELFPAY ==
[2020-06-26] MEDS: COVID-19 VACC #2, MRNA(MOD) 100 MCG/0.5 ML VIAL IM (10:16)
== END ==
PROVIDERS: PCP Family Medicine; Visit Provider Internal Medicine
DX: Z23 Encounter for immunization (principal)
CPT/HCPCS: 0012A; 91301

== ENCOUNTER → 2021-09-09 08:38 | Outpatient (CLI) | payer MEDICARE, OTHER, SELFPAY ==
[2021-09-09 10:13] LABS: Add Manual Diff / Slide Review NO; Basophils Absolute Auto 0 /uL (0-100); Basophils Percent Auto 0.8 % (0-2); Eosinophils Absolute Auto 100 /uL (0-450); Hemoglobin 15.5 g/dL (13.5-17.5); Lymphocytes Absolute Auto 800 /uL (1100-4500); Lymphocytes Percent Auto 27.9 % (25-40); Mean Corpuscular HGB Conc 33.1 % (30-36); Mean Corpuscular Hemoglobin 31.8 PG (26-34); Mean Corpuscular Volume 96.2 fL (80-100); Monocytes Absolute Auto 300 /uL (0-900); Monocytes Percent Auto 10.3 % (3-14); Neutrophils Absolute Auto 1700 /uL (1500-7000); Platelet Count 183 X10^3/uL (150-400); Red Blood Cell Count 4.89 X10^6/uL (4.5-5.9); Red Cell Distribution Width 12.7 % (11.6-14.8); White Blood Cell Count 2.8 X10^3/uL (4.5-11.0)
[2021-09-09 10:55] LABS: Alanine Aminotransferase 23 IU/L (<50); Albumin 4.3 g/dL (3.5-5.0); Albumin Globulin Ratio 1.4 (1.0-2.8); Alkaline Phosphatase 63 U/L (38-126); Aspartate Aminotransferase 39 IU/L (17-59); BUN Creatinine Ratio 19.1 (6-22); Bilirubin Total 0.9 mg/dL (0.2-1.3); Blood Urea Nitrogen 17 mg/dL (9-20); Calcium 9.2 mg/dL (8.4-10.2); Carbon Dioxide 30 mmol/L (22-32); Chloride 105 mmol/L (98-107); Cholesterol 230 mg/dL (140-199); Estimated Glomerular Filt Rate > 60 mL/min (>60); Glucose 96 mg/dL (80-110); HDL Cholesterol 81 mg/dL (40-60); HEMOLYSIS < 15 (0-50); LDL Cholesterol Calculated 131 mg/dL (<100); Potassium 4.1 mmol/L (3.4-5.1); Sodium 144 mmol/L (137-145); Total Protein 7.3 g/dL (6.3-8.2); Triglycerides 89 mg/dL (35-150)
== END ==
PROVIDERS: PCP Family Medicine; Referring Provider Family Medicine; Visit Provider Family Medicine
DX: I49.9 Cardiac arrhythmia, unspecified (principal); Z13.6 Encounter for screening for cardiovascular disorders; Z12.5 Encounter for screening for malignant neoplasm of prostate
CPT/HCPCS: 36415; 80053; 80061; 85025

== ENCOUNTER → 2022-09-15 15:30 | Outpatient (CLI) | payer MEDICARE, OTHER, SELFPAY ==
[2022-09-15 18:58] LABS: Influenza A - CEPHEID Flu A NEGATIVE (NEGATIVE); Influenza B - CEPHEID Flu B NEGATIVE (NEGATIVE); Respiratory Syncytial Virus Negative (Negative)
[2022-09-15 18:59] LABS: COVID-19 CEPHEID 4-PLEX PCR POSITIVE (Negative)
== END ==
PROVIDERS: PCP Family Medicine; Visit Provider Nurse Practitioner Family
DX: R05.9 Cough, unspecified (principal)
CPT/HCPCS: 0241U

== ENCOUNTER → 2022-09-22 09:35 | Outpatient (CLI) | payer MEDICARE, OTHER, SELFPAY ==
[2022-09-22 10:09] LABS: Add Manual Diff / Slide Review NO; Basophils Absolute Auto 0 /uL (0-100); Basophils Percent Auto 0.7 % (0-2); Eosinophils Absolute Auto 0 /uL (0-450); Eosinophils Percent Auto 0.5 % (2-4); Hematocrit 47.4 % (41-53); Hemoglobin 15.9 g/dL (13.5-17.5); Lymphocytes Absolute Auto 900 /uL (1100-4500); Lymphocytes Percent Auto 26.4 % (25-40); Mean Corpuscular HGB Conc 33.5 % (30-36); Mean Corpuscular Hemoglobin 31.9 PG (26-34); Mean Corpuscular Volume 95.4 fL (80-100); Monocytes Absolute Auto 300 /uL (0-900); Monocytes Percent Auto 10.2 % (3-14); Neutrophils Absolute Auto 2100 /uL (1500-7000); Neutrophils Percent Auto 62.2 % (50-75); Platelet Count 201 X10^3/uL (150-400); Red Blood Cell Count 4.97 X10^6/uL (4.5-5.9); Red Cell Distribution Width 12.8 % (11.6-14.8); White Blood Cell Count 3.4 X10^3/uL (4.5-11.0)
[2022-09-22 10:36] LABS: BUN Creatinine Ratio 24.4 (6-22); Blood Urea Nitrogen 21 mg/dL (9-20); Calcium 9.5 mg/dL (8.4-10.2); Carbon Dioxide 33 mmol/L (22-32); Chloride 102 mmol/L (98-107); Cholesterol 216 mg/dL (140-199); Estimated Glomerular Filt Rate > 60 mL/min (>60); Glucose 95 mg/dL (80-110); HDL Cholesterol 66 mg/dL (40-60); HEMOLYSIS 21 (0-50); LDL Cholesterol Calculated 136 mg/dL (<100); Potassium 4.9 mmol/L (3.4-5.1); Sodium 139 mmol/L (137-145); Triglycerides 68 mg/dL (35-150)
[2022-09-22 11:01] LABS: Prostate Specific Antigen Scrn 0.699 ng/mL (0.1-4.0)
== END ==
PROVIDERS: PCP Family Medicine; Referring Provider Family Medicine; Visit Provider Family Medicine
DX: E78.00 Pure hypercholesterolemia, unspecified (principal); Z12.5 Encounter for screening for malignant neoplasm of prostate
CPT/HCPCS: 36415; 80048; 80061; 85025; G0103

== ENCOUNTER → 2022-10-12 11:06 | Outpatient (CLI) | payer MEDICARE, OTHER, SELFPAY ==
--- NOTE | 2022-10-12 11:09 | DI.RAD.S_ITS ---
PROCEDURE: XR LUMBAR SPINE 2-3V INDICATIONS: Pain TECHNIQUE: 3 views of the lumbar spine were acquired. COMPARISON: [facility], CR, XR LUMBAR SPINE 2-3V, 01/28/2019, 14:42. FINDINGS: Bones: 5 [id number] vertebrae are present. There is normal bony alignment. Loss of disc height, degenerative endplate changes and bilateral facet arthrosis at L4-5 and L5-S1 levels are seen. No vertebral body compression fractures. No suspicious bony lesions. Soft tissues: Overlying bowel gas pattern is normal. No suspicious soft tissue calcifications. IMPRESSION: Degenerative disc disease in lower lumbar spine. No acute compression fracture or significant spondylolisthesis. Dictated by: Yogi Mcgee M.D. on 10/12/2022 at 12:54 Approved by: Yogi Mcgee M.D. on 10/12/2022 at 13:04
== END ==
PROVIDERS: PCP Family Medicine; Referring Provider Family Medicine; Visit Provider Family Medicine
DX: M51.16 Intervertebral disc disorders with radiculopathy, lumbar region (principal); G89.29 Other chronic pain
CPT/HCPCS: 72100

== ENCOUNTER → 2022-10-27 08:07 | Outpatient (CLI) | payer MEDICARE, OTHER, SELFPAY ==
--- NOTE | 2022-10-27 | DI.MRI.S_ITS ---
PROCEDURE: MR LUMBAR SPINE WO CON INDICATIONS: Radiculopathy, lumbar region TECHNIQUE: Noncontrast sagittal T1 spin echo and T2 fast echo, sagittal STIR, and T2 fast spin echo through the lumbar spine. In cases with scoliosis, additional coronal T2 fast spin echo may be performed. COMPARISON: [facility], MR, MR LUMBAR SPINE WO CON, 02/14/2019, 7:05. FINDINGS: Image quality: Excellent. Alignment and Curvature: Trace anterolisthesis of L4 on L5. Trace retrolisthesis of L5 on S1. Bone Marrow: Marrow is of normal overall signal. No acute vertebral body compression fractures. Spinal Cord: Conus medullaris terminates at the L1-L2 level. Visualized cord demonstrates normal signal and size. Paraspinous Soft Tissues: No paravertebral masses. T12-L1: Normal appearance. L1-L2: Normal appearance. L2-L3: No significant change. Mild disc bulge. Mild facet hypertrophy. No canal stenosis or foraminal stenosis. L3-L4: Slight interval improvement. Previously, there was a mild disc bulge with small left central disc protrusion. The protrusion has resolved. There is residual disc bulge. There is facet and ligament hypertrophy. There is borderline canal stenosis. Mild bilateral foraminal stenosis without nerve root impingement. L4-L5: Severe chronic disc height loss. Diffuse posterior disc post osteophyte. There is a small focal right paracentral disc protrusion plus osteophyte which somewhat impinges on the right L5 nerve root in the right lateral recess. Reference image 27 of series 5, the T2 axial sequence. There is facet hypertrophy. There is [id number] canal stenosis. There is mild right foraminal narrowing. There is moderate left foraminal narrowing with flattening deformity on the exiting left L4 nerve root. L5-S1: Chronic severe disc height loss. There is bilateral facet hypertrophy. There is mild retrolisthesis of L5 on S1. There is no significant canal stenosis. There is moderate bilateral foraminal narrowing. IMPRESSION: 1. There is underlying multilevel facet arthropathy. 2. Slight improvement at L3-L4. A mild left central disc protrusion has resolved. 3. At L4-L5, a small focal right paracentral disc protrusion plus osteophyte somewhat impinges on the right L5 nerve root in the right lateral recess. 4. Borderline canal stenosis at L3-L4 and [id number] canal stenosis at L4-L5. 5. Multilevel foraminal narrowing as described above. Findings include moderate left foraminal narrowing at L4-L5 and moderate bilateral foraminal narrowing at L5-S1. Dictated by: Aniceto Wright M.D. on 10/27/2022 at 10:24 Approved by: Aniceto Wright M.D. on 10/27/2022 at 10:32
== END ==
PROVIDERS: PCP Family Medicine; Referring Provider Physician Assistant; Visit Provider Physician Assistant
DX: M47.26 Other spondylosis with radiculopathy, lumbar region; M51.16 Intervertebral disc disorders with radiculopathy, lumbar region; M47.27 Other spondylosis with radiculopathy, lumbosacral region; M48.061 Spinal stenosis, lumbar region without neurogenic claudication; M48.07 Spinal stenosis, lumbosacral region; M54.50 Low back pain, unspecified
CPT/HCPCS: 72148

== ENCOUNTER → 2025-01-09 14:26 | Outpatient (CLI) | payer MEDICARE, OTHER, SELFPAY ==
[2025-01-09 15:15] LABS: Add Manual Diff / Slide Review NO; Hematocrit 44.1 % (41-53); Hemoglobin 14.9 g/dL (13.5-17.5); Lymphocytes Absolute Auto 700 /uL (1100-4500); Mean Corpuscular HGB Conc 33.7 % (30-36); Mean Corpuscular Hemoglobin 32.5 PG (26-34); Mean Corpuscular Volume 96.4 fL (80-100); Platelet Count 173 X10^3/uL (150-400)
[2025-01-09 15:33] LABS: Alanine Aminotransferase 29 IU/L (<50); Albumin 4.3 g/dL (3.5-5.0); Albumin Globulin Ratio 1.6 (1.0-2.8); Alkaline Phosphatase 71 U/L (38-126); Blood Urea Nitrogen 26 mg/dL (9-20); Calcium 9.4 mg/dL (8.4-10.2); Carbon Dioxide 25 mmol/L (22-32); Chloride 104 mmol/L (98-107); Cholesterol 225 mg/dL (140-199); Estimated Glomerular Filt Rate > 60 mL/min (>60); Globulin 2.7 g/dL (1.7-4.1); Glucose 94 mg/dL (70-99); HDL Cholesterol 79 mg/dL (40-60); HEMOLYSIS < 15 (0-50); Potassium 4.2 mmol/L (3.4-5.1); Sodium 140 mmol/L (137-145); Total Protein 7.0 g/dL (6.3-8.2); Triglycerides 118 mg/dL (35-150)
== END ==
PROVIDERS: PCP Family Medicine; Referring Provider Family Medicine; Visit Provider Family Medicine
DX: E78.00 Pure hypercholesterolemia, unspecified (principal); Z12.5 Encounter for screening for malignant neoplasm of prostate
CPT/HCPCS: 36415; 80053; 80061; 85025; G0103